=== PATIENT | male | born 1930 | race Caucasian/White ===

== ENCOUNTER 2017-01-04 08:05 | Inpatient (IN) ==
[2017-01-04] MEDS ORDERED: 0.9 % Sodium Chloride 1,000 ML IVC ONE (08:09)
[2017-01-04] MEDS ORDERED: Ipratropium/Albuterol Neb 3 ML IH ONE (08:11)
--- NOTE | 2017-01-04 08:14 | Emergency Department Note ---
Disposition Clinical Impression: Hyperkalemia, Renal failure (ARF), acute on chronic Respiratory failure Qualifiers: Chronicity: acute Respiratory failure complication: hypoxia and hypercapnia Qualified Code(s): J96.01 - Acute respiratory failure with hypoxia; J96.02 - Acute respiratory failure with hypercapnia Sepsis Qualifiers: Sepsis type: sepsis due to unspecified organism Qualified Code(s): A41.9 - Sepsis, unspecified organism Disposition: Admitted As Inpatient Condition: Serious General Adult HPI - General Chief complaint: ED Shortness of Breath/Dyspnea Stated complaint: SOB Time Seen by Provider: 01/04/17 08:08 Source: EMS Nursing Notes Reviewed: Yes Vital Signs Reviewed: Yes - History of Present Illness Pain Scale: 0 - Related Data Home Medications Medication Instructions Recorded Confirmed Aspirin [Lo-Dose Aspirin EC] 81 mg PO DAILY 01/04/17 01/04/17 Atenolol [Tenormin] 37.5 mg PO DAILY 01/04/17 01/04/17 Calcium Citrate 200 mg PO BID 01/04/17 01/04/17 Cholecalciferol (D-3) [Vitamin D] 2,000 unit PO DAILY 01/04/17 01/04/17 Docusate [Colace] 100 mg PO BID 01/04/17 01/04/17 Guaifenesin [Adult Tussin Chest 100 mg PO Q6H PRN 01/04/17 01/04/17 Congestion] Hydrochlorothiazide 12.5 mg PO DAILY 01/04/17 01/04/17 Ipratropium/Albuterol Neb [Duoneb] 3 ml IH Q4HR 01/04/17 01/04/17 Omeprazole [PriLOSEC] 40 mg PO BID 01/04/17 01/04/17 Oxycodone HCl/Acetaminophen 1 tab PO Q4H PRN 01/04/17 01/04/17 [Percocet 5-325 mg Tablet] Potassium Chloride [Klor-Con 10 meq PO DAILY 01/04/17 01/04/17 Sprinkle] Sennosides [Senna] 8.6 mg PO BID PRN 01/04/17 01/04/17 Tamsulosin [Flomax] 0.4 mg PO DAILY 01/04/17 01/04/17 Allergies Allergy/AdvReac Type Severity Reaction Status Date / Time Amoxicillin [From Augmentin] Allergy Anaphylaxis Verified 01/04/17 08:10 clavulanic acid Allergy Anaphylaxis Verified 01/04/17 08:10 [From Augmentin] Past Medical History - Past Medical History Medical history: Reports: cancer, COPD, GERD, hyperlipidemia, hypertension, other - Social History Smoking Status: Former smoker Alcohol use: Reports: unknown Drug use: Reports: unknown Course Vital Signs Temperature 100.3 F H 01/04/17 08:07 Pulse Rate 125 01/04/17 08:07 Respiratory Rate 28 01/04/17 08:07 Blood Pressure 88/57 01/04/17 08:07 O2 Sat by Pulse Oximetry 96 01/04/17 08:07 Temperature 98.5 F 01/04/17 11:49 Pulse Rate 93 01/04/17 11:49 Respiratory Rate 32 01/04/17 11:49 Blood Pressure 90/49 01/04/17 11:49 O2 Sat by Pulse Oximetry 90 L 01/04/17 11:49 Oxygen Delivery Oxygen Delivery Non Rebreather Mask Medical Decision Making - MDM Narrative Medical decision making narrative: I examined this patient and my medical decision-making was reviewed with the CLERK OF SUPERIOR COURT/PA/Advanced Practice Nurse/Resident Physician. I agree with the documented findings, disposition and treatment plan as described except to the extent set forth below. Patient was referred to the ED from the [facility]. I spoke with her physician over there. They thought he may have choked or aspirated this morning. He had rhonchorous breath sounds. His sats were low, blood pressure was in the 70s, he is [facility] Have not seen his actual records. Patient is having difficulty with breathing he is history of bronchogenic carcinoma. He did have 2 episodes of vomiting over there the paramedics noted was dark in color look coffee-ground emesis. History of peptic ulcer in the past this could be a GI bleed. Getting a second IV in him doing sepsis orders and reassess once his labs are back. He will most likely need an ICU admission. Chest X-Ray 01/04/17 08:08 IMPRESSION: 1. Study limited, as detailed above. 2. 6.0 cm masslike opacity within mid right lung, with differential considerations including a pulmonary mass, pneumonia, or loculated fluid in the fissure. 3. Curvilinear bibasilar airspace disease, representing either atelectasis, pneumonia, or aspiration. 4. Mild interstitial pulmonary edema. 5. Bilateral hilar opacity could reflect vascular shadows in the setting of pulmonary arterial hypertension, though bilateral hilar lymphadenopathy is also a diagnostic consideration. RECOMMENDATION: Given the aforementioned findings, suggest further characterization with a chest CT with contrast. D/ / Rinku Harvey MD / Rinku Harvey MD Interpreting Provider: Rinku Harvey MD 0900 hrs.: Spoke with his daughter. She understands that he is not likely to survive this episode. She said they were at [facility] 3 weeks ago for kidney failure. At that time the hospital one in the sign a DNR and he did not. They do not want to go against his wishes. However I am uncertain whether he can make any of this decisions today. Daughters, nor talked to her about his condition and determine the best course. He has antibiotics ordered. As he could be septic. We will make sure he is not a GI bleed also. 0920 hrs. his guaiac showed dark stool here but new policy in the hospital prevents us from developing the guaiac immediately in the ER to determine its paws are not badillo wait for lab. His troponin is elevated. His potassium is elevated I am talking to the lab to find out if the specimen was hemolyzed. Calcium is ordered. Waiting on daughter still to determine more management with him and how aggressive they like to be. 0930 hrs.: Spoke with labs, no hemolysis on his specimen. 0940 hrs.: I spoke with the family. They want him to be comfortable. There still not certain about intubation. They understand that he will probably not survive this. We spoke with palliative care there to speak with the family. Family is speaking with mortgage assistant now. We will go and request a bed for him and then speak with hospitalist palliative care and continue updating family. 1015 hrs.: Patient has decided he wants to be a DNR CC, family is in agreement with that. He will have a palliative consult with hospitalist admission. We did have a palliative care bed. Patient's critical care time x-rays separately billable procedures is 65 minutes. 1030 hrs.: Palliative care seen the patient in the department. Patient will be admitted to hospitalist service with palliative care consult in. Family is in agreement with plan and thankful for this plan. - Lab Data Result diagrams: 01/04/17 08:28 01/04/17 08:28 Lab Results 01/04/17 01/04/17 01/04/17 Range/Units 08:18 08:20 08:28 WBC 23.1 H (4.3-11.1) K/mcL RBC 3.51 L (4.19-5.50) M/mcL Hgb 10.2 L (12.9-16.9) g/dL Hct 34.1 L (37.5-50.1) % MCV 97.2 (83.0-100.0) fL MCH 29.1 (28.0-33.3) pg MCHC 29.9 L (31.6-35.5) g/dL RDW 14.6 H (11.5-14.5) % Plt Count 485 H (140-400) K/mcL MPV 9.4 (9.4-12.4) fL Seg Neutrophils % 76.0 % Band Neutrophils % 16.0 H (0-4) % Lymphocytes % 4.0 % Monocytes % 2.0 % Myelocytes % 2.0 H (0) % Neutrophils # 21.3 H (1.6-8.9) K/mcL Lymphocytes # 0.9 (0.6-4.6) K/mcL Monocytes # 0.5 (0.0-1.3) K/mcL Platelet Estimate Increased H (Normal) Immature Plt Fraction 2.2 (1.1-6.1) % Polychromasia 1+ A (Not Present) Poikilocytosis 1+ A (Not Present) Anisocytosis 1+ A (Not Present) PT (9.4-12.1) Seconds INR APTT (26.0-36.0) Seconds ABG pH 7.43 (7.32-7.45) pH Units ABG pCO2 54 H (35-45) mmHg ABG pO2 82 L (85-104) mmHg ABG HCO3 35.8 H (21-27) mEQ/L ABG Total CO2 37.5 H (20-26) mEq/L ABG O2 Saturation 96 (95-98) % ABG Base Excess 10.1 H (-2.0 to 3.0) mEq/L Blood Gas Modality NRB Inspired O2 100 % Sodium (136-145) mEq/L Potassium (3.5-4.5) mEq/L Chloride (98-109) mEq/L Carbon Dioxide (19-29) mEq/L BUN (8-26) mg/dL Creatinine (0.72-1.25) mg/dL Est GFR ( Amer) (> 60) Est GFR (Non-Af Amer) (> 60) BUN/Creatinine Ratio (6-26) Glucose (70-99) mg/dL Calculated Osmolality (280-300) Lactic Acid (0.5-2.2) mmol/L Calcium (8.6-10.8) mg/dL Phosphorus (2.3-4.7) mg/dL Magnesium (1.6-2.6) mg/dL Total Bilirubin (0.2-1.2) mg/dL AST (5-34) Units/L ALT (0-55) Units/L Alkaline Phosphatase (38-126) Units/L Troponin I (0-0.03) ng/mL B-Natriuretic Peptide (0-100) pg/mL Serum Total Protein (6.0-8.3) g/dL Albumin (3.5-5.0) g/dL Globulin (2.4-3.5) g/dL Albumin/Globulin Ratio (1.1-2.2) Lipase (8-78) Units/L Urine Color Dark Yellow (Yellow) Urine Clarity Cloudy A (Clear) Urine pH 5.5 (5.0-8.0) pH Units Ur Specific [place] > 1.030 H (1.010-1.025) Urine Protein 30 H (Neg-Trace) mg/dL Urine Glucose (UA) Normal (Normal) mg/dL Urine Ketones Trace H (Negative) mg/dL Urine Blood Large H (Negative) Urine Nitrite Positive A (Negative) Urine Bilirubin Negative (Negative) Urine Urobilinogen Normal (Normal) mg/dL Ur Leukocyte Esterase Moderate H (Negative) Urine Microscopic RBC 30-50 H (0-3) per hpf Urine Microscopic WBC TNTC H (0-3) per hpf Ur Squamous Epith Cells Many H (None-Few) per lpf Urine Bacteria Moderate H (None-Few) per hpf Hyaline Casts Few (None-Few) per lpf Ur Culture Indicated? YES A (NO) Stool Occult Blood (Negative) Blood Type Antibody Screen 01/04/17 01/04/17 01/04/17 Range/Units 08:28 08:28 08:28 WBC (4.3-11.1) K/mcL RBC (4.19-5.50) M/mcL Hgb (12.9-16.9) g/dL Hct (37.5-50.1) % MCV (83.0-100.0) fL MCH (28.0-33.3) pg MCHC (31.6-35.5) g/dL RDW (11.5-14.5) % Plt Count (140-400) K/mcL MPV (9.4-12.4) fL Seg Neutrophils % % Band Neutrophils % (0-4) % Lymphocytes % % Monocytes % % Myelocytes % (0) % Neutrophils # (1.6-8.9) K/mcL Lymphocytes # (0.6-4.6) K/mcL Monocytes # (0.0-1.3) K/mcL Platelet Estimate (Normal) Immature Plt Fraction (1.1-6.1) % Polychromasia (Not Present) Poikilocytosis (Not Present) Anisocytosis (Not Present) PT 14.3 H (9.4-12.1) Seconds INR 1.3 APTT 31.5 (26.0-36.0) Seconds ABG pH (7.32-7.45) pH Units ABG pCO2 (35-45) mmHg ABG pO2 (85-104) mmHg ABG HCO3 (21-27) mEQ/L ABG Total CO2 (20-26) mEq/L ABG O2 Saturation (95-98) % ABG Base Excess (-2.0 to 3.0) mEq/L Blood Gas Modality Inspired O2 % Sodium 147 H (136-145) mEq/L Potassium 6.9 H* (3.5-4.5) mEq/L Chloride 105 (98-109) mEq/L Carbon Dioxide 32 H (19-29) mEq/L BUN 77 H (8-26) mg/dL Creatinine 3.03 H (0.72-1.25) mg/dL Est GFR ( Amer) 24 L (> 60) Est GFR (Non-Af Amer) 20 L (> 60) BUN/Creatinine Ratio 25 (6-26) Glucose 121 H (70-99) mg/dL Calculated Osmolality 328 H (280-300) Lactic Acid (0.5-2.2) mmol/L Calcium 10.4 (8.6-10.8) mg/dL Phosphorus (2.3-4.7) mg/dL Magnesium (1.6-2.6) mg/dL Total Bilirubin 0.3 (0.2-1.2) mg/dL AST 19 (5-34) Units/L ALT 13 (0-55) Units/L Alkaline Phosphatase 86 (38-126) Units/L Troponin I 0.71 H* (0-0.03) ng/mL B-Natriuretic Peptide (0-100) pg/mL Serum Total Protein 7.5 (6.0-8.3) g/dL Albumin 2.4 L (3.5-5.0) g/dL Globulin 5.1 H (2.4-3.5) g/dL Albumin/Globulin Ratio 0.5 L (1.1-2.2) Lipase 11 (8-78) Units/L Urine Color (Yellow) Urine Clarity (Clear) Urine pH (5.0-8.0) pH Units Ur Specific [place] (1.010-1.025) Urine Protein (Neg-Trace) mg/dL Urine Glucose (UA) (Normal) mg/dL Urine Ketones (Negative) mg/dL Urine Blood (Negative) Urine Nitrite (Negative) Urine Bilirubin (Negative) Urine Urobilinogen (Normal) mg/dL Ur Leukocyte Esterase (Negative) Urine Microscopic RBC (0-3) per hpf Urine Microscopic WBC (0-3) per hpf Ur Squamous Epith Cells (None-Few) per lpf Urine Bacteria (None-Few) per hpf Hyaline Casts (None-Few) per lpf Ur Culture Indicated? (NO) Stool Occult Blood (Negative) Blood Type Antibody Screen 01/04/17 01/04/17 01/04/17 Range/Units 08:28 08:28 08:28 WBC (4.3-11.1) K/mcL RBC (4.19-5.50) M/mcL Hgb (12.9-16.9) g/dL Hct (37.5-50.1) % MCV (83.0-100.0) fL MCH (28.0-33.3) pg MCHC (31.6-35.5) g/dL RDW (11.5-14.5) % Plt Count (140-400) K/mcL MPV (9.4-12.4) fL Seg Neutrophils % % Band Neutrophils % (0-4) % Lymphocytes % % Monocytes % % Myelocytes % (0) % Neutrophils # (1.6-8.9) K/mcL Lymphocytes # (0.6-4.6) K/mcL Monocytes # (0.0-1.3) K/mcL Platelet Estimate (Normal) Immature Plt Fraction (1.1-6.1) % Polychromasia (Not Present) Poikilocytosis (Not Present) Anisocytosis (Not Present) PT (9.4-12.1) Seconds INR APTT (26.0-36.0) Seconds ABG pH (7.32-7.45) pH Units ABG pCO2 (35-45) mmHg ABG pO2 (85-104) mmHg ABG HCO3 (21-27) mEQ/L ABG Total CO2 (20-26) mEq/L ABG O2 Saturation (95-98) % ABG Base Excess (-2.0 to 3.0) mEq/L Blood Gas Modality Inspired O2 % Sodium (136-145) mEq/L Potassium (3.5-4.5) mEq/L Chloride (98-109) mEq/L Carbon Dioxide (19-29) mEq/L BUN (8-26) mg/dL Creatinine (0.72-1.25) mg/dL Est GFR ( Amer) (> 60) Est GFR (Non-Af Amer) (> 60) BUN/Creatinine Ratio (6-26) Glucose (70-99) mg/dL Calculated Osmolality (280-300) Lactic Acid 2.3 H (0.5-2.2) mmol/L Calcium (8.6-10.8) mg/dL Phosphorus 5.4 H (2.3-4.7) mg/dL Magnesium 2.4 (1.6-2.6) mg/dL Total Bilirubin (0.2-1.2) mg/dL AST (5-34) Units/L ALT (0-55) Units/L Alkaline Phosphatase (38-126) Units/L Troponin I (0-0.03) ng/mL B-Natriuretic Peptide 393 H (0-100) pg/mL Serum Total Protein (6.0-8.3) g/dL Albumin (3.5-5.0) g/dL Globulin (2.4-3.5) g/dL Albumin/Globulin Ratio (1.1-2.2) Lipase (8-78) Units/L Urine Color (Yellow) Urine Clarity (Clear) Urine pH (5.0-8.0) pH Units Ur Specific [place] (1.010-1.025) Urine Protein (Neg-Trace) mg/dL Urine Glucose (UA) (Normal) mg/dL Urine Ketones (Negative) mg/dL Urine Blood (Negative) Urine Nitrite (Negative) Urine Bilirubin (Negative) Urine Urobilinogen (Normal) mg/dL Ur Leukocyte Esterase (Negative) Urine Microscopic RBC (0-3) per hpf Urine Microscopic WBC (0-3) per hpf Ur Squamous Epith Cells (None-Few) per lpf Urine Bacteria (None-Few) per hpf Hyaline Casts (None-Few) per lpf Ur Culture Indicated? (NO) Stool Occult Blood (Negative) Blood Type Antibody Screen 01/04/17 01/04/17 01/04/17 Range/Units 08:33 09:20 10:29 WBC (4.3-11.1) K/mcL RBC (4.19-5.50) M/mcL Hgb (12.9-16.9) g/dL Hct (37.5-50.1) % MCV (83.0-100.0) fL MCH (28.0-33.3) pg MCHC (31.6-35.5) g/dL RDW (11.5-14.5) % Plt Count (140-400) K/mcL MPV (9.4-12.4) fL Seg Neutrophils % % Band Neutrophils % (0-4) % Lymphocytes % % Monocytes % % Myelocytes % (0) % Neutrophils # (1.6-8.9) K/mcL Lymphocytes # (0.6-4.6) K/mcL Monocytes # (0.0-1.3) K/mcL Platelet Estimate (Normal) Immature Plt Fraction (1.1-6.1) % Polychromasia (Not Present) Poikilocytosis (Not Present) Anisocytosis (Not Present) PT (9.4-12.1) Seconds INR APTT (26.0-36.0) Seconds ABG pH (7.32-7.45) pH Units ABG pCO2 (35-45) mmHg ABG pO2 (85-104) mmHg ABG HCO3 (21-27) mEQ/L ABG Total CO2 (20-26) mEq/L ABG O2 Saturation (95-98) % ABG Base Excess (-2.0 to 3.0) mEq/L Blood Gas Modality Inspired O2 % Sodium (136-145) mEq/L Potassium (3.5-4.5) mEq/L Chloride (98-109) mEq/L Carbon Dioxide (19-29) mEq/L BUN (8-26) mg/dL Creatinine (0.72-1.25) mg/dL Est GFR ( Amer) (> 60) Est GFR (Non-Af Amer) (> 60) BUN/Creatinine Ratio (6-26) Glucose (70-99) mg/dL Calculated Osmolality (280-300) Lactic Acid 1.7 (0.5-2.2) mmol/L Calcium (8.6-10.8) mg/dL Phosphorus (2.3-4.7) mg/dL Magnesium (1.6-2.6) mg/dL Total Bilirubin (0.2-1.2) mg/dL AST (5-34) Units/L ALT (0-55) Units/L Alkaline Phosphatase (38-126) Units/L Troponin I (0-0.03) ng/mL B-Natriuretic Peptide (0-100) pg/mL Serum Total Protein (6.0-8.3) g/dL Albumin (3.5-5.0) g/dL Globulin (2.4-3.5) g/dL Albumin/Globulin Ratio (1.1-2.2) Lipase (8-78) Units/L Urine Color (Yellow) Urine Clarity (Clear) Urine pH (5.0-8.0) pH Units Ur Specific [place] (1.010-1.025) Urine Protein (Neg-Trace) mg/dL Urine Glucose (UA) (Normal) mg/dL Urine Ketones (Negative) mg/dL Urine Blood (Negative) Urine Nitrite (Negative) Urine Bilirubin (Negative) Urine Urobilinogen (Normal) mg/dL Ur Leukocyte Esterase (Negative) Urine Microscopic RBC (0-3) per hpf Urine Microscopic WBC (0-3) per hpf Ur Squamous Epith Cells (None-Few) per lpf Urine Bacteria (None-Few) per hpf Hyaline Casts (None-Few) per lpf Ur Culture Indicated? (NO) Stool Occult Blood Negative (Negative) Blood Type O POSITIVE Antibody Screen NEGATIVE
--- NOTE | 2017-01-04 08:15 | Emergency Department Note ---
Disposition Clinical Impression: Hyperkalemia, Renal failure (ARF), acute on chronic Respiratory failure Qualifiers: Chronicity: acute on chronic Respiratory failure complication: hypoxia and hypercapnia Qualified Code(s): J96.21 - Acute and chronic respiratory failure with hypoxia Sepsis Qualifiers: Sepsis type: sepsis due to unspecified organism Qualified Code(s): A41.9 - Sepsis, unspecified organism Disposition: Admitted As Inpatient Condition: Serious General Adult HPI - General Chief complaint: ED Shortness of Breath/Dyspnea Stated complaint: SOB Time Seen by Provider: 01/04/17 08:08 Source: patient, EMS Mode of arrival: EMS Limitations: no limitations Nursing Notes Reviewed: Yes Vital Signs Reviewed: Yes - History of Present Illness HPI Narrative: 86-year-old male [place] the [place] from the [place] due to shortness of breath. Pt Subjective Complaint: Shortness of breath Onset (ago): Just DERMATOPATHOLOGIST Location: chest Radiation: non-radiation Pain Scale: 0 Consistency: constant Improves with: nothing Worsens with: nothing Associated symptoms: Reports: shortness of breath. Denies: chest pain, cough, fever/chills, nausea/vomiting Treatments Prior to Arrival: other (Oxygen) - Related Data Home Medications Medication Instructions Recorded Confirmed Aspirin [Lo-Dose Aspirin EC] 81 mg PO DAILY 01/04/17 01/04/17 Atenolol [Tenormin] 37.5 mg PO DAILY 01/04/17 01/04/17 Calcium Citrate 200 mg PO BID 01/04/17 01/04/17 Cholecalciferol (D-3) [Vitamin D] 2,000 unit PO DAILY 01/04/17 01/04/17 Docusate [Colace] 100 mg PO BID 01/04/17 01/04/17 Guaifenesin [Adult Tussin Chest 100 mg PO Q6H PRN 01/04/17 01/04/17 Congestion] Hydrochlorothiazide 12.5 mg PO DAILY 01/04/17 01/04/17 Ipratropium/Albuterol Neb [Duoneb] 3 ml IH Q4HR 01/04/17 01/04/17 Omeprazole [PriLOSEC] 40 mg PO BID 01/04/17 01/04/17 Oxycodone HCl/Acetaminophen 1 tab PO Q4H PRN 01/04/17 01/04/17 [Percocet 5-325 mg Tablet] Potassium Chloride [Klor-Con 10 meq PO DAILY 01/04/17 01/04/17 Sprinkle] Sennosides [Senna] 8.6 mg PO BID PRN 01/04/17 01/04/17 Tamsulosin [Flomax] 0.4 mg PO DAILY 01/04/17 01/04/17 Allergies Allergy/AdvReac Type Severity Reaction Status Date / Time Amoxicillin [From Augmentin] Allergy Anaphylaxis Verified 01/04/17 08:10 clavulanic acid Allergy Anaphylaxis Verified 01/04/17 08:10 [From Augmentin] All systems ED: reviewed and negative except as stated. Constitutional: Denies: fever Cardiovascular: Denies: chest pain Respiratory: Reports: dyspnea, other (Coffee-ground emesis). Denies: wheezes Gastrointestinal: Reports: vomiting, hematemesis (Coffee-ground). Denies: abdominal pain, nausea Hematological/Lymphatic: Denies: easy bleeding Past Medical History - Past Medical History Attestation: Yes The following information was validated with the patient. Source: patient, old records reviewed Medical history: Reports: cancer, COPD, GERD, hyperlipidemia, hypertension, other Surgical history: Reports: non-contributory - Social History Smoking Status: Former smoker Alcohol use: Reports: unknown Drug use: Reports: unknown Physical Exam - General Limitations: no limitations General appearance: alert, in distress - Head Head exam: atraumatic, normocephalic, normal inspection - Eye Eye exam: Present: normal appearance - ENT ENT exam: normal exam - Neck Neck exam: Present: normal inspection - Chest Chest inspection: Present: normal inspection, symmetric chest wall rise - Respiratory Respiratory exam: Present: respiratory distress, accessory muscle use, other ( Patient has diffuse coarse breath sounds) - Cardiovascular Cardiovascular exam: Present: normal rhythm, tachycardia, normal heart sounds - Abdominal Exam Abdominal exam: Present: soft, Non-Tender, distention - Extremities Exam Extremities exam: Present: normal inspection, full ROM - Expanded Lower Extremity Exam Hip/Pelvis exam: Present: normal inspection, full ROM Upper leg exam: Present: normal inspection, full ROM Knee exam: Present: normal inspection, full ROM Lower leg exam: Present: normal inspection, full ROM Ankle exam: Present: normal inspection, full ROM Foot/toe exam: Present: normal inspection, full ROM - Neurological Exam Neurological exam: Present: alert - Psychiatric Psychiatric exam: Present: normal affect, normal mood - Skin Skin exam: Present: warm, dry, intact, normal color Course Course Narrative: 86-year-old male history of bronchogenic carcinoma, hypertension, hyperlipidemia , GERD, peptic ulcer disease who presents to the ER via EMS from the [facility] with a chief complaint of shortness of breath. Report from the [place] states that they thought the patient might have aspirated prior to arrival. It was noted on his sheets that he had the appearance of coffee-ground emesis. Patient was placed on a nonrebreather with improvement of his oxygen saturation. He denies chest pain. Reports that he does feel more short of breath and usual. No other complaints. Plan for patient his EKG, chest x-ray as well as basic labs and sepsis screening. We will give him some breathing treatments now. Low threshold to place on in IPPV which intubate. Reported full code. He is hypotensive on presentation. A second IV has been established. We will begin IV fluid resuscitation. - Reevaluation(s) Reevaluation #1: Patient remains hypotensive in the 70s over 40s. Placing fluids on pressure bag. Continue to monitor closely. Reevaluation #2: Slight improvement in blood pressure with 1 L in. Blood pressure was 90/60. We are currently holding off on positive pressure ventilation due to his hypotension. Family is on the way and will discuss with them. Vital Signs Temperature 100.3 F H 01/04/17 08:07 Pulse Rate 125 01/04/17 08:07 Respiratory Rate 28 01/04/17 08:07 Blood Pressure 88/57 01/04/17 08:07 O2 Sat by Pulse Oximetry 96 01/04/17 08:07 Temperature 97.8 F 01/05/17 03:44 Pulse Rate 83 01/05/17 03:44 Respiratory Rate 30 01/05/17 04:17 Blood Pressure 84/43 01/05/17 03:44 O2 Sat by Pulse Oximetry 97 01/05/17 04:17 Oxygen Delivery Oxygen Delivery Non Rebreather Mask Medical Decision Making - [facility] Narrative Medical decision making narrative: 86-year-old male presents to the ER due to respiratory distress from the [place]. He has a history of lung cancer. Patient here was tachycardic and hypotensive. Patient was given IV fluid resuscitation with improvement in his blood pressure. Family was present and discussed end-of-life care. Patient's CODE STATUS was changed to DNR CC and he was admitted to the hospitalist service with a palliative care consult. - Lab Data Lab results reviewed: Yes I reviewed the patient's lab results. Result diagrams: 01/04/17 08:28 01/05/17 05:30 Lab Results 01/04/17 01/04/17 01/04/17 Range/Units 08:18 08:20 08:28 WBC 23.1 H (4.3-11.1) K/mcL RBC 3.51 L (4.19-5.50) M/mcL Hgb 10.2 L (12.9-16.9) g/dL Hct 34.1 L (37.5-50.1) % MCV 97.2 (83.0-100.0) fL MCH 29.1 (28.0-33.3) pg MCHC 29.9 L (31.6-35.5) g/dL RDW 14.6 H (11.5-14.5) % Plt Count 485 H (140-400) K/mcL MPV 9.4 (9.4-12.4) fL Seg Neutrophils % 76.0 % Band Neutrophils % 16.0 H (0-4) % Lymphocytes % 4.0 % Monocytes % 2.0 % Myelocytes % 2.0 H (0) % Neutrophils # 21.3 H (1.6-8.9) K/mcL Lymphocytes # 0.9 (0.6-4.6) K/mcL Monocytes # 0.5 (0.0-1.3) K/mcL Platelet Estimate Increased H (Normal) Immature Plt Fraction 2.2 (1.1-6.1) % Polychromasia 1+ A (Not Present) Poikilocytosis 1+ A (Not Present) Anisocytosis 1+ A (Not Present) PT (9.4-12.1) Seconds INR APTT (26.0-36.0) Seconds ABG pH 7.43 (7.32-7.45) pH Units ABG pCO2 54 H (35-45) mmHg ABG pO2 82 L (85-104) mmHg ABG HCO3 35.8 H (21-27) mEQ/L ABG Total CO2 37.5 H (20-26) mEq/L ABG O2 Saturation 96 (95-98) % ABG Base Excess 10.1 H (-2.0 to 3.0) mEq/L Blood Gas Modality NRB Inspired O2 100 % Sodium (136-145) mEq/L Potassium (3.5-4.5) mEq/L Chloride (98-109) mEq/L Carbon Dioxide (19-29) mEq/L BUN (8-26) mg/dL Creatinine (0.72-1.25) mg/dL Est GFR ( Amer) (> 60) Est GFR (Non-Af Amer) (> 60) BUN/Creatinine Ratio (6-26) Glucose (70-99) mg/dL Calculated Osmolality (280-300) Lactic Acid (0.5-2.2) mmol/L Calcium (8.6-10.8) mg/dL Phosphorus (2.3-4.7) mg/dL Magnesium (1.6-2.6) mg/dL Total Bilirubin (0.2-1.2) mg/dL AST (5-34) Units/L ALT (0-55) Units/L Alkaline Phosphatase (38-126) Units/L Troponin I (0-0.03) ng/mL B-Natriuretic Peptide (0-100) pg/mL Serum Total Protein (6.0-8.3) g/dL Albumin (3.5-5.0) g/dL Globulin (2.4-3.5) g/dL Albumin/Globulin Ratio (1.1-2.2) Lipase (8-78) Units/L Urine Color Dark Yellow (Yellow) Urine Clarity Cloudy A (Clear) Urine pH 5.5 (5.0-8.0) pH Units Ur Specific [place] > 1.030 H (1.010-1.025) Urine Protein 30 H (Neg-Trace) mg/dL Urine Glucose (UA) Normal (Normal) mg/dL Urine Ketones Trace H (Negative) mg/dL Urine Blood Large H (Negative) Urine Nitrite Positive A (Negative) Urine Bilirubin Negative (Negative) Urine Urobilinogen Normal (Normal) mg/dL Ur Leukocyte Esterase Moderate H (Negative) Urine Microscopic RBC 30-50 H (0-3) per hpf Urine Microscopic WBC TNTC H (0-3) per hpf Ur Squamous Epith Cells Many H (None-Few) per lpf Urine Bacteria Moderate H (None-Few) per hpf Hyaline Casts Few (None-Few) per lpf Ur Culture Indicated? YES A (NO) Stool Occult Blood (Negative) Blood Type Antibody Screen 01/04/17 01/04/17 01/04/17 Range/Units 08:28 08:28 08:28 WBC (4.3-11.1) K/mcL RBC (4.19-5.50) M/mcL Hgb (12.9-16.9) g/dL Hct (37.5-50.1) % MCV (83.0-100.0) fL MCH (28.0-33.3) pg MCHC (31.6-35.5) g/dL RDW (11.5-14.5) % Plt Count (140-400) K/mcL MPV (9.4-12.4) fL Seg Neutrophils % % Band Neutrophils % (0-4) % Lymphocytes % % Monocytes % % Myelocytes % (0) % Neutrophils # (1.6-8.9) K/mcL Lymphocytes # (0.6-4.6) K/mcL Monocytes # (0.0-1.3) K/mcL Platelet Estimate (Normal) Immature Plt Fraction (1.1-6.1) % Polychromasia (Not Present) Poikilocytosis (Not Present) Anisocytosis (Not Present) PT 14.3 H (9.4-12.1) Seconds INR 1.3 APTT 31.5 (26.0-36.0) Seconds ABG pH (7.32-7.45) pH Units ABG pCO2 (35-45) mmHg ABG pO2 (85-104) mmHg ABG HCO3 (21-27) mEQ/L ABG Total CO2 (20-26) mEq/L ABG O2 Saturation (95-98) % ABG Base Excess (-2.0 to 3.0) mEq/L Blood Gas Modality Inspired O2 % Sodium 147 H (136-145) mEq/L Potassium 6.9 H* (3.5-4.5) mEq/L Chloride 105 (98-109) mEq/L Carbon Dioxide 32 H (19-29) mEq/L BUN 77 H (8-26) mg/dL Creatinine 3.03 H (0.72-1.25) mg/dL Est GFR ( Amer) 24 L (> 60) Est GFR (Non-Af Amer) 20 L (> 60) BUN/Creatinine Ratio 25 (6-26) Glucose 121 H (70-99) mg/dL Calculated Osmolality 328 H (280-300) Lactic Acid (0.5-2.2) mmol/L Calcium 10.4 (8.6-10.8) mg/dL Phosphorus (2.3-4.7) mg/dL Magnesium (1.6-2.6) mg/dL Total Bilirubin 0.3 (0.2-1.2) mg/dL AST 19 (5-34) Units/L ALT 13 (0-55) Units/L Alkaline Phosphatase 86 (38-126) Units/L Troponin I 0.71 H* (0-0.03) ng/mL B-Natriuretic Peptide (0-100) pg/mL Serum Total Protein 7.5 (6.0-8.3) g/dL Albumin 2.4 L (3.5-5.0) g/dL Globulin 5.1 H (2.4-3.5) g/dL Albumin/Globulin Ratio 0.5 L (1.1-2.2) Lipase 11 (8-78) Units/L Urine Color (Yellow) Urine Clarity (Clear) Urine pH (5.0-8.0) pH Units Ur Specific [place] (1.010-1.025) Urine Protein (Neg-Trace) mg/dL Urine Glucose (UA) (Normal) mg/dL Urine Ketones (Negative) mg/dL Urine Blood (Negative) Urine Nitrite (Negative) Urine Bilirubin (Negative) Urine Urobilinogen (Normal) mg/dL Ur Leukocyte Esterase (Negative) Urine Microscopic RBC (0-3) per hpf Urine Microscopic WBC (0-3) per hpf Ur Squamous Epith Cells (None-Few) per lpf Urine Bacteria (None-Few) per hpf Hyaline Casts (None-Few) per lpf Ur Culture Indicated? (NO) Stool Occult Blood (Negative) Blood Type Antibody Screen 01/04/17 01/04/17 01/04/17 Range/Units 08:28 08:28 08:28 WBC (4.3-11.1) K/mcL RBC (4.19-5.50) M/mcL Hgb (12.9-16.9) g/dL Hct (37.5-50.1) % MCV (83.0-100.0) fL MCH (28.0-33.3) pg MCHC (31.6-35.5) g/dL RDW (11.5-14.5) % Plt Count (140-400) K/mcL MPV (9.4-12.4) fL Seg Neutrophils % % Band Neutrophils % (0-4) % Lymphocytes % % Monocytes % % Myelocytes % (0) % Neutrophils # (1.6-8.9) K/mcL Lymphocytes # (0.6-4.6) K/mcL Monocytes # (0.0-1.3) K/mcL Platelet Estimate (Normal) Immature Plt Fraction (1.1-6.1) % Polychromasia (Not Present) Poikilocytosis (Not Present) Anisocytosis (Not Present) PT (9.4-12.1) Seconds INR APTT (26.0-36.0) Seconds ABG pH (7.32-7.45) pH Units ABG pCO2 (35-45) mmHg ABG pO2 (85-104) mmHg ABG HCO3 (21-27) mEQ/L ABG Total CO2 (20-26) mEq/L ABG O2 Saturation (95-98) % ABG Base Excess (-2.0 to 3.0) mEq/L Blood Gas Modality Inspired O2 % Sodium (136-145) mEq/L Potassium (3.5-4.5) mEq/L Chloride (98-109) mEq/L Carbon Dioxide (19-29) mEq/L BUN (8-26) mg/dL Creatinine (0.72-1.25) mg/dL Est GFR ( Amer) (> 60) Est GFR (Non-Af Amer) (> 60) BUN/Creatinine Ratio (6-26) Glucose (70-99) mg/dL Calculated Osmolality (280-300) Lactic Acid 2.3 H (0.5-2.2) mmol/L Calcium (8.6-10.8) mg/dL Phosphorus 5.4 H (2.3-4.7) mg/dL Magnesium 2.4 (1.6-2.6) mg/dL Total Bilirubin (0.2-1.2) mg/dL AST (5-34) Units/L ALT (0-55) Units/L Alkaline Phosphatase (38-126) Units/L Troponin I (0-0.03) ng/mL B-Natriuretic Peptide 393 H (0-100) pg/mL Serum Total Protein (6.0-8.3) g/dL Albumin (3.5-5.0) g/dL Globulin (2.4-3.5) g/dL Albumin/Globulin Ratio (1.1-2.2) Lipase (8-78) Units/L Urine Color (Yellow) Urine Clarity (Clear) Urine pH (5.0-8.0) pH Units Ur Specific [place] (1.010-1.025) Urine Protein (Neg-Trace) mg/dL Urine Glucose (UA) (Normal) mg/dL Urine Ketones (Negative) mg/dL Urine Blood (Negative) Urine Nitrite (Negative) Urine Bilirubin (Negative) Urine Urobilinogen (Normal) mg/dL Ur Leukocyte Esterase (Negative) Urine Microscopic RBC (0-3) per hpf Urine Microscopic WBC (0-3) per hpf Ur Squamous Epith Cells (None-Few) per lpf Urine Bacteria (None-Few) per hpf Hyaline Casts (None-Few) per lpf Ur Culture Indicated? (NO) Stool Occult Blood (Negative) Blood Type Antibody Screen 01/04/17 01/04/17 01/04/17 Range/Units 08:33 09:20 10:29 WBC (4.3-11.1) K/mcL RBC (4.19-5.50) M/mcL Hgb (12.9-16.9) g/dL Hct (37.5-50.1) % MCV (83.0-100.0) fL MCH (28.0-33.3) pg MCHC (31.6-35.5) g/dL RDW (11.5-14.5) % Plt Count (140-400) K/mcL MPV (9.4-12.4) fL Seg Neutrophils % % Band Neutrophils % (0-4) % Lymphocytes % % Monocytes % % Myelocytes % (0) % Neutrophils # (1.6-8.9) K/mcL Lymphocytes # (0.6-4.6) K/mcL Monocytes # (0.0-1.3) K/mcL Platelet Estimate (Normal) Immature Plt Fraction (1.1-6.1) % Polychromasia (Not Present) Poikilocytosis (Not Present) Anisocytosis (Not Present) PT (9.4-12.1) Seconds INR APTT (26.0-36.0) Seconds ABG pH (7.32-7.45) pH Units ABG pCO2 (35-45) mmHg ABG pO2 (85-104) mmHg ABG HCO3 (21-27) mEQ/L ABG Total CO2 (20-26) mEq/L ABG O2 Saturation (95-98) % ABG Base Excess (-2.0 to 3.0) mEq/L Blood Gas Modality Inspired O2 % Sodium (136-145) mEq/L Potassium (3.5-4.5) mEq/L Chloride (98-109) mEq/L Carbon Dioxide (19-29) mEq/L BUN (8-26) mg/dL Creatinine (0.72-1.25) mg/dL Est GFR ( Amer) (> 60) Est GFR (Non-Af Amer) (> 60) BUN/Creatinine Ratio (6-26) Glucose (70-99) mg/dL Calculated Osmolality (280-300) Lactic Acid 1.7 (0.5-2.2) mmol/L Calcium (8.6-10.8) mg/dL Phosphorus (2.3-4.7) mg/dL Magnesium (1.6-2.6) mg/dL Total Bilirubin (0.2-1.2) mg/dL AST (5-34) Units/L ALT (0-55) Units/L Alkaline Phosphatase (38-126) Units/L Troponin I (0-0.03) ng/mL B-Natriuretic Peptide (0-100) pg/mL Serum Total Protein (6.0-8.3) g/dL Albumin (3.5-5.0) g/dL Globulin (2.4-3.5) g/dL Albumin/Globulin Ratio (1.1-2.2) Lipase (8-78) Units/L Urine Color (Yellow) Urine Clarity (Clear) Urine pH (5.0-8.0) pH Units Ur Specific [place] (1.010-1.025) Urine Protein (Neg-Trace) mg/dL Urine Glucose (UA) (Normal) mg/dL Urine Ketones (Negative) mg/dL Urine Blood (Negative) Urine Nitrite (Negative) Urine Bilirubin (Negative) Urine Urobilinogen (Normal) mg/dL Ur Leukocyte Esterase (Negative) Urine Microscopic RBC (0-3) per hpf Urine Microscopic WBC (0-3) per hpf Ur Squamous Epith Cells (None-Few) per lpf Urine Bacteria (None-Few) per hpf Hyaline Casts (None-Few) per lpf Ur Culture Indicated? (NO) Stool Occult Blood Negative (Negative) Blood Type O POSITIVE Antibody Screen NEGATIVE - Radiology Data Radiology results reviewed: Yes I reviewed the patient's radiology results. Chest X-Ray 01/04/17 08:08 IMPRESSION: 1. Study limited, as detailed above. 2. 6.0 cm masslike opacity within mid right lung, with differential considerations including a pulmonary mass, pneumonia, or loculated fluid in the fissure. 3. Curvilinear bibasilar airspace disease, representing either atelectasis, pneumonia, or aspiration. 4. Mild interstitial pulmonary edema. 5. Bilateral hilar opacity could reflect vascular shadows in the setting of pulmonary arterial hypertension, though bilateral hilar lymphadenopathy is also a diagnostic consideration. RECOMMENDATION: Given the aforementioned findings, suggest further characterization with a chest CT with contrast. D/ / Rinku Harvey MD / Rinku Harvey MD Interpreting Provider: Rinku Harvey MD - EKG Data EKG #1 EKG attestation: Yes I reviewed and interpreted this EKG. EKG results narrative: EKG shows sinus tachycardia with rate of 125. Left axis deviation. RI interval 146 QRS duration 85 QTc 354. There is slight depression in lead V6. No ST elevations. No previous EKG for comparison.
[2017-01-04] MEDS ORDERED: Vancomycin 750 MG in D5% in Water 250 ML IVPB ONE (08:34)
[2017-01-04] MEDS ORDERED: Levofloxacin 750 MG/150 ML 750 MG/150 ML BAG IVPB ONE (08:34)
[2017-01-04] MEDS ORDERED: Aztreonam 2,000 MG in D5% in Water (Mini-Bag+) 100 ML IVPB ONE (08:34)
[2017-01-04 08:35] LABS: ABG Base Excess 10.1 mEq/L (-2.0 to 3.0); ABG HCO3 35.8 mEQ/L (21-27); ABG Oxygen Saturation 96 % (95-98); ABG PCO2 54 mmHg (35-45); ABG PH 7.43 pH Units (7.32-7.45); ABG PO2 82 mmHg (85-104); ABG TCO2 37.5 mEq/L (20-26); Blood Gas FiO2 100 %
[2017-01-04 08:37] LABS: Bilirubin,Urine Negative (Negative); Blood,Urine Large (Negative); Clarity,Urine Cloudy (Clear); Color,Urine Dark Yellow (Yellow); Glucose,Urine (UA) Normal (Normal); Ketones,Urine Trace mg/dL (Negative); Leukocyte Esterase,Urine Moderate (Negative); Nitrite,Urine Positive (Negative); PH,Urine 5.5 pH Units (5.0-8.0); Protein,Urine 30 mg/dL (Neg-Trace); Specific Gravity,Urine > 1.030 (1.010-1.025); Urobilinogen,Urine Normal (Normal)
[2017-01-04] MEDS ORDERED: 0.9 % Sodium Chloride 500 ML IVC ONE (08:37)
[2017-01-04 08:38] LABS: Bacteria,Urine Moderate per hpf (None-Few); Hyaline Casts,Urine Few per lpf (None-Few); RBC,Urine 30-50 per hpf (0-3); Squamous Epithelial Cell,Urine Many per lpf (None-Few); WBC,Urine TNTC per hpf (0-3)
[2017-01-04 08:49] LABS: Hematocrit 34.1 % (37.5-50.1); Hemoglobin 10.2 g/dL (12.9-16.9); Immature Platelets 2.2 % (1.1-6.1); Mean Corpuscular HGB Conc 29.9 g/dL (31.6-35.5); Mean Corpuscular Hemoglobin 29.1 pg (28.0-33.3); Mean Corpuscular Volume 97.2 fL (83.0-100.0); Mean Platelet Volume 9.4 fL (9.4-12.4); Platelet Count 485 K/mcL (140-400); Red Blood Count 3.51 M/mcL (4.19-5.50); Red Cell Distribution Width 14.6 % (11.5-14.5)
[2017-01-04 08:56] LABS: INR 1.3; Prothrombin Time 14.3 Seconds (9.4-12.1)
[2017-01-04 08:58] LABS: Activated Partial Thrombo Time 31.5 Seconds (26.0-36.0)
[2017-01-04 09:01] LABS: Magnesium 2.4 mg/dL (1.6-2.6); Phosphorous 5.4 mg/dL (2.3-4.7)
[2017-01-04 09:04] LABS: Albumin 2.4 g/dL (3.5-5.0); Albumin/Globulin Ratio 0.5 (1.1-2.2); Bilirubin,Total 0.3 mg/dL (0.2-1.2); Calcium 10.4 mg/dL (8.6-10.8); Globulin 5.1 g/dL (2.4-3.5); Total Protein 7.5 g/dL (6.0-8.3)
[2017-01-04 09:13] LABS: Potassium 6.9 mEq/L (3.5-4.5)
[2017-01-04] MEDS ORDERED: Calcium Gluconate 1,000 MG in D5% in Water 100 ML IVPB ONE (09:19)
[2017-01-04 09:20] LABS: Lymphocytes # 0.9 K/mcL (0.6-4.6); Monocytes # 0.5 K/mcL (0.0-1.3); Neutrophils # 21.3 K/mcL (1.6-8.9)
[2017-01-04 09:21] LABS: Platelet Estimate Increased (Normal)
[2017-01-04 09:22] LABS: Anisocytosis 1+ (Not Present); Poikilocytosis 1+ (Not Present); Polychromasia 1+ (Not Present)
[2017-01-04] MEDS ORDERED: *HR* Dextrose 50 % in Water (Syg) 50 ML SYRINGE IVP ONE (09:26)
[2017-01-04] MEDS ORDERED: Insulin Human Regular 10 UNIT in 0.9 % Sodium Chloride 10 ML IV ONE (09:26)
[2017-01-04] MEDS ORDERED: *HR* Morphine 2 MG/ML SYRINGE IVP PRN ×2 (12:19→13:41)
[2017-01-04] MEDS ORDERED: Naloxone 0.4 MG/ML INJ IVP PRN (12:19)
[2017-01-04] MEDS ORDERED: *HR* OxyCODONE/APAP 5/325 TABLET PO PRN (12:22)
[2017-01-04] MEDS ORDERED: Atropine Sulfate 300 DROP/15 ML BOTTLE SL PRN (12:45)
[2017-01-04] MEDS ORDERED: Levofloxacin 500 MG/100 ML 500 MG/100 ML BAG IVPB SCH (13:00)
[2017-01-04] MEDS: 0.9 % Sodium Chloride 1,000 ML IVC SCH ×2 (13:19→22:40)
[2017-01-04] MEDS ORDERED: Ondansetron 4 MG/2 ML VIAL IVP PRN (13:39)
--- NOTE | 2017-01-04 13:42 | Internal Med History&Physical ---
Date of Encounter: 01/05/17 Time of Encounter: 13:38 Assessment and Plan (1) Sepsis Current visit: Yes Status: Acute Sepsis: -Likely source pneumonia. Plan: -We will continue meropenem/levofloxacin for now. -We will not start patient on vancomycin as his renal function is impaired. -We will monitor patient very closely. -Within of 48 hours if patient condition does not improve then we will let him go to hospice. -Family is aware of the situation and they agreed with the plan. -All these above discussed with the palliative care team and they agreed Qualifiers: Sepsis type: sepsis due to unspecified organism Qualified Code(s): A41.9 - Sepsis, unspecified organism (2) Renal failure (ARF), acute on chronic Current visit: Yes Status: Acute Acute kidney injury: -This is likely secondary to dehydration. -We will start patient on IV fluids and monitor his labs very closely. (3) Respiratory failure Current visit: Yes Status: Acute Advanced bronchogenic carcinoma. This may be the cause for respiratory failure. Qualifiers: Chronicity: acute on chronic Respiratory failure complication: hypoxia and hypercapnia Qualified Code(s): J96.21 - Acute and chronic respiratory failure with hypoxia; J96.22 - Acute and chronic respiratory failure with hypercapnia (4) Bronchogenic cancer Current visit: Yes Status: Acute Known to have a bronchogenic carcinoma. Qualifiers: Laterality: right Qualified Code(s): C34.91 - Malignant neoplasm of unspecified part of right bronchus or lung Internal Medicine - H&P: HPI Chief complaint: JAKUB Admitted From: Emergency Dept Plans for Post Hospital Care: Transfer [facility] History of present illness: Mr. Greer is a 86 year old male who was transferred from the [place]. Patient has a background history of bronchogenic carcinoma, hypertension, hyperlipidemia, GERD , peptic ulcer disease. Patient was brought to the emergency room from [place]. Patient was a resident of [facility]. The reason for transfer to this hospital at least for worsening shortness of breath. The likely reason for worsening shortness of breath is possible aspiration pneumonia. Family also found coffee-ground emesis on the patient's sheet. In the emergency room patient was placed on nonrebreather mask which kept his saturations were around 90%. Patient was obtunded and it was very difficult to get any further information from the patient. I understand that patient's family wanted comfort care. Emergency room physician spoke with the palliative care team. There was a good discussion between emergency room physician, palliative care physician, box car checker and family. Family would like patient to have few days of antibiotics only. they wish no further aggressive treatment. We will start patient on antibiotics for few days. If the patient's condition does not improve then family is willing for hospice. All family members are on the same page Past Med Surg Social Fam HX - Past Medical History Medical history: cancer, COPD, GERD, hyperlipidemia, hypertension, other - Past Surgical History Surgical History: non-contributory - Social History Smoking Status: Former smoker Alcohol use: unknown Drug use: unknown Internal Medicine - H&P: Meds Aspirin [Lo-Dose Aspirin EC] 81 mg PO DAILY 01/04/17 [History] Atenolol [Tenormin] 37.5 mg PO DAILY 01/04/17 [History] Calcium Citrate 200 mg PO BID 01/04/17 [History] Cholecalciferol (D-3) [Vitamin D] 2,000 unit PO DAILY 01/04/17 [History] Docusate [Colace] 100 mg PO BID 01/04/17 [History] Guaifenesin [Adult Tussin Chest Congestion] 100 mg PO Q6H PRN 01/04/17 [History] Hydrochlorothiazide 12.5 mg PO DAILY 01/04/17 [History] Ipratropium/Albuterol Neb [Duoneb] 3 ml IH Q4HR 01/04/17 [History] Omeprazole [PriLOSEC] 40 mg PO BID 01/04/17 [History] Oxycodone HCl/Acetaminophen [Percocet 5-325 mg Tablet] 1 tab PO Q4H PRN [History] Potassium Chloride [Klor-Con Sprinkle] 10 meq PO DAILY 01/04/17 [History] Sennosides [Senna] 8.6 mg PO BID PRN 01/04/17 [History] Tamsulosin [Flomax] 0.4 mg PO DAILY 01/04/17 [History] Allergies Amoxicillin [From Augmentin] Allergy (Verified 01/04/17 08:10) Anaphylaxis clavulanic acid [From Augmentin] Allergy (Verified 01/04/17 08:10) Anaphylaxis ROS unobtainable: due to mental status All Systems PM: A 10-system review of systems was performed and is negative for pertinent findings except as documented above in the HPI. - Constitutional Vitals: Temp Pulse Resp BP Pulse Ox 98.5 F 93 32 90/49 90 L 01/04/17 11:49 01/04/17 11:49 01/04/17 11:49 01/04/17 11:49 01/04/17 11:49 General appearance: Present: cachectic, A&O X 1, disheveled - Head Head exam: Present: atraumatic, normocephalic - Eye Eye exam: Present: PERRL, conjuntiva pink, sclera anicteric Pupils: Present: PERRL - Neck Neck exam general surgery: Present: supple, trachea midline. Absent: lymphadenopathy - Respiratory Respiratory exam: Present: CTAB. Absent: accessory muscle use, rales, rhonchi, wheezes - Cardiovascular Cardiovascular exam: Present: RRR, +S1, +S2. Absent: diastolic murmur, gallop, rubs, systolic murmur - GI/Abdominal GI/Abdominal exam: Present: normal bowel sounds, soft, no peritoneal signs. Absent: distended, tenderness - Extremities Exam Extremities exam: Present: warm, radial pulses palpable and symetrical. Absent : calf tenderness, cyanotic, pedal edema - Neurological Exam Neurological exam: Present: CN II-XII intact, oriented X3, no focal deficits. Absent: pronater drift, facial droop, speech deficit - Skin Skin exam: Present: dry, intact Internal Med - H&P Results - Labs CBC & Chem 7: 01/04/17 08:28 01/05/17 05:30
[2017-01-04] MEDS: Atropine Sulfate 1% 40 DROP/2 ML BOTTLE SL PRN (14:00)
--- NOTE | 2017-01-04 15:12 | Palliative - Consult Note ---
Date of Encounter: 01/04/17 Time of Encounter: 10:00 - Assessment and Plan (1) Dyspnea Current Visit: Yes Status: Acute Assessment and plan: Will continue giving patient breathing treatments, oxygen and patient is now on BiPAP we will monitor this. Qualifiers: Dyspnea type: other forms of dyspnea Qualified Code(s): R06.09 - Other forms of dyspnea (2) Goals of care, counseling/discussion Current Visit: Yes Status: Acute Assessment and plan: The patient and family are currently opting for comfort care. However they do wish to give antibiotics to try. The patient does well with this we will transfer him back to the DC. If he does not do well we will see about DC hospice. If DC hospice does not work out he will go with local hospice. (3) Bronchogenic cancer Current Visit: Yes Status: Acute Assessment and plan: This has been in remission for quite a while, although on the x-ray today there is a question of mass versus localized pneumonia. His family do not wish to have a biopsy done at this time, we will see if it is treatable with antibiotics if not the patient will probably opt for hospice. Qualifiers: Laterality: right Qualified Code(s): C34.91 - Malignant neoplasm of unspecified part of right bronchus or lung (4) Hyperkalemia Current Visit: Yes Status: Acute Assessment and plan: Patient wishes to have comfort care, but we will go ahead and give him some Kayexalate to see if we can bring this down. (5) Renal failure (ARF), acute on chronic Current Visit: Yes Status: Acute Assessment and plan: We will continue to watch and give fluids patient's blood pressure is much better now with fluids given previously continue to watch the renal failure. Patient is also very hyperkalemic which is secondary to the acute on chronic renal failure also continue to watch this. Patient may wish to not have this done much longer, in which case we will then stop. In the not for hospice at that time. (6) Respiratory failure Current Visit: Yes Status: Acute Assessment and plan: We will continue to use BiPAP as needed oxygen and breathing treatments. Patient is DNR CC so there will be no intubation. Qualifiers: Chronicity: acute on chronic Respiratory failure complication: hypoxia and hypercapnia Qualified Code(s): J96.21 - Acute and chronic respiratory failure with hypoxia; J96.22 - Acute and chronic respiratory failure with hypercapnia (7) Sepsis Current Visit: Yes Status: Acute Assessment and plan: Continue antibiotics for the next 24-48 hours and reevaluate at that point in time patient may wish to just do hospice care only. And stop all aggressive care. Qualifiers: Sepsis type: sepsis due to unspecified organism Qualified Code(s): A41.9 - Sepsis, unspecified organism Palliative-CN HPI - Data of Consult Patient: new to practice Requesting Physician: Harlan Fleming [facility] - Consult Narrative Palliative Care/Comfort Measures: Palliative care History of present illness: Mr. 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 Patient however has had right deal of problem over the last 6 weeks he fell on November 25 and head and was noted to have compression fractures in his back. Since then he has been in and out of the hospital back to [facility] for [facility] but never home. [facility] today was having more trouble breathing it was felt that he possibly aspirated and was sent to the emergency Department [facility] for further evaluation. In the emergency Department at [facility] the patient and family opted for comfort care measures only. After further discussion with the patient and the patient's family was decided we would try a limited trial of antibiotics and a limited amount of Kayexalate to deal with his hyperkalemia, sepsis and he is getting limited IV fluid for his renal failure. She does not having any pain at this time he is visibly short of breath and admits to this. Having some trouble with nausea but no vomiting. CC: Harlan Fleming sob, hypotension Past Med Surg Social Fam HX - Past Medical History Medical history: cancer, COPD, GERD, hyperlipidemia, hypertension, other - Past Surgical History Surgical History: non-contributory - Social History Smoking Status: Former smoker Alcohol use: unknown Drug use: unknown Medications and Allergies Aspirin [Lo-Dose Aspirin EC] 81 mg PO DAILY 01/04/17 [History] Atenolol [Tenormin] 37.5 mg PO DAILY 01/04/17 [History] Calcium Citrate 200 mg PO BID 01/04/17 [History] Cholecalciferol (D-3) [Vitamin D] 2,000 unit PO DAILY 01/04/17 [History] Docusate [Colace] 100 mg PO BID 01/04/17 [History] Guaifenesin [Adult Tussin Chest Congestion] 100 mg PO Q6H PRN 01/04/17 [History] Hydrochlorothiazide 12.5 mg PO DAILY 01/04/17 [History] Ipratropium/Albuterol Neb [Duoneb] 3 ml IH Q4HR 01/04/17 [History] Omeprazole [PriLOSEC] 40 mg PO BID 01/04/17 [History] Oxycodone HCl/Acetaminophen [Percocet 5-325 mg Tablet] 1 tab PO Q4H PRN [History] Potassium Chloride [Klor-Con Sprinkle] 10 meq PO DAILY 01/04/17 [History] Sennosides [Senna] 8.6 mg PO BID PRN 01/04/17 [History] Tamsulosin [Flomax] 0.4 mg PO DAILY 01/04/17 [History] Allergies Amoxicillin [From Augmentin] Allergy (Verified 01/04/17 08:10) Anaphylaxis clavulanic acid [From Augmentin] Allergy (Verified 01/04/17 08:10) Anaphylaxis ROS unobtainable: due to mental status (Patient is having a difficult time getting review of systems secondary to shortness of breath) Palliative Care-Exam - Constitutional Vitals: Temp Pulse Resp BP Pulse Ox 98.5 F 93 32 90/49 90 L 01/04/17 11:49 01/04/17 11:49 01/04/17 11:49 01/04/17 11:49 01/04/17 11:49 General appearance: Present: mild distress (Technique and shortness of breath) - Head Head Exam: Present: atraumatic, normal inspection - Eye Eye exam: Present: normal appearance - ENT ENT exam: Present: mucous membranes moist - Neck Neck exam: Present: normal inspection - Respiratory Respiratory exam: Present: decreased breath sounds (Lots of upper airway noise) , rhonchi - Cardiovascular Cardiovascular exam: Present: irregular rhythm (Somewhat irregular) - GI/Abdominal Exam GI/Abdominal exam: Present: normal bowel sounds, soft. Absent: tenderness - Extremities Exam Extremities exam: Present: normal inspection. Absent: pedal edema, tenderness - Neurological Exam Neurological exam: Present: alert - Psychiatric Psychiatric exam: Absent: agitated, anxious - Skin Skin exam: Present: dry, warm Internal Medicine - CN: Reslt - Labs CBC & Chem 7: 01/04/17 08:28 01/04/17 08:28 - ABG Interpretation ABG results: ABG ABG pH 7.43 pH Units (7.32-7.45) 01/04/17 08:20 ABG pCO2 54 mmHg (35-45) H 01/04/17 08:20 ABG pO2 82 mmHg (85-104) L 01/04/17 08:20 ABG O2 Saturation 96 % (95-98) 01/04/17 08:20 PT/INR, D-dimer PT 14.3 Seconds (9.4-12.1) H 01/04/17 08:28 Consult Discharge Plan - Plan [facility]errals: [facility] [Primary Care Provider] - Palliative Quality Palliative Quality: Screen for Code Status: Yes, Screen for Goals of Care: Yes, Screen for Pain: Yes, If Pain Regimen Started, Initiate Bowel Regimen: Yes, Screen for Nausea/Vomitting: Yes Code Status: 01/04/17 12:19 Resuscitation Status: Active [RES] Routine Comment: Resuscitation Status: DNR-Comfort Care
[2017-01-04] MEDS: Ipratropium/Albuterol Neb 3 ML IH SCH ×3 (16:07→23:29)
[2017-01-04] MEDS: *HR* Morphine 2 MG/ML SYRINGE IVP PRN ×5 (16:50→22:39)
[2017-01-04] MEDS: *HR* Heparin 5,000 UNIT/ML VIAL SQ SCH (17:33)
[2017-01-04] MEDS: Meropenem 500 MG in 0.9 % Sodium Chloride Mini Bag 100 ML IVPB SCH (17:46)
[2017-01-04] MEDS: *HR* LORazepam 2 MG/ML VIAL IVP PRN ×2 (18:54→22:40)
[2017-01-05] MEDS: *HR* Morphine 2 MG/ML SYRINGE IVP PRN ×6 (02:02→18:53)
[2017-01-05] MEDS: *HR* LORazepam 2 MG/ML VIAL IVP PRN ×5 (02:03→23:34)
[2017-01-05] MEDS: *HR* Heparin 5,000 UNIT/ML VIAL SQ SCH (03:34)
[2017-01-05] MEDS: Meropenem 500 MG in 0.9 % Sodium Chloride Mini Bag 100 ML IVPB SCH (03:35)
[2017-01-05] MEDS: Ipratropium/Albuterol Neb 3 ML IH SCH ×6 (04:17→23:17)
[2017-01-05 07:10] LABS: Albumin/Globulin Ratio 0.4 (1.1-2.2); Bilirubin,Total 0.2 mg/dL (0.2-1.2); Globulin 3.7 g/dL (2.4-3.5)
[2017-01-05 07:12] LABS: Albumin 1.5 g/dL (3.5-5.0); Calcium 7.9 mg/dL (8.6-10.8); Total Protein 5.2 g/dL (6.0-8.3)
[2017-01-05 07:15] LABS: Potassium 6.6 mEq/L (3.5-4.5)
[2017-01-05 07:30] LABS: Basophils % 0.1 %; Hematocrit 21.6 % (37.5-50.1); Immature Granulocytes % 0.7 % (0-4); Lymphocytes # 1.2 K/mcL (0.6-4.6); Lymphocytes % 8.5 %; Mean Corpuscular HGB Conc 30.6 g/dL (31.6-35.5); Mean Corpuscular Volume 98.2 fL (83.0-100.0); Monocytes # 0.7 K/mcL (0.0-1.3); Neutrophils # 11.9 K/mcL (1.6-8.9); Platelet Count 219 K/mcL (140-400); Red Cell Distribution Width 14.5 % (11.5-14.5); Segmented Neutrophils % 85.7 %
[2017-01-05 07:40] LABS: Hemoglobin 6.6 g/dL (12.9-16.9)
[2017-01-05 08:08] LABS: Basophilic Stippling 1+ (Not Present); Platelet Estimate Normal (Normal)
--- NOTE | 2017-01-05 10:21 | Internal Med Progress Note ---
<ChelaKyler lambert - Last Filed: 01/05/17 10:19> Date of Encounter: 01/05/17 Time of Encounter: 10:19 - Assessment and plan (1) Respiratory failure Current Visit: Yes Status: Acute Assessment and plan: Currently on BiPAP therapy. Likely related to pneumonia. History of lung cancer is also likely contributing. Patient is DNR CC, palliative care is following the patient closely. Patient will likely go hospice at some point in the near future. Qualifiers: Chronicity: acute on chronic Respiratory failure complication: hypoxia and hypercapnia Qualified Code(s): J96.21 - Acute and chronic respiratory failure with hypoxia; J96.22 - Acute and chronic respiratory failure with hypercapnia (2) Pneumonia Current Visit: Yes Status: Acute Assessment and plan: Likely contributing to the patient's respiratory failure. Family wishes to continue antibiotics at this time. BiPAP support as needed. DuoNeb and atropine for comfort. We will continually reassess goals of care with family. Qualifiers: Pneumonia type: due to unspecified organism Laterality: unspecified laterality Lung location: unspecified part of lung Qualified Code(s): J18.9 - Pneumonia, unspecified organism (3) Hyperkalemia Current Visit: Yes Status: Acute Assessment and plan: Likely related to the patient's acute renal failure. Improved slightly today. Plan was to treat with Kayexalate yesterday however the family is asking that we hold off on treating at this time. (4) Renal failure (ARF), acute on chronic Current Visit: Yes Status: Acute Assessment and plan: Gradually worsening. Likely causing hyperkalemia. Patient is DNR CC, no aggressive measures at this time. (5) Bronchogenic cancer Current Visit: Yes Status: Acute Assessment and plan: History of approximately 11 years ago. Possibly contributing to the patient's respiratory status. Qualifiers: Laterality: right Qualified Code(s): C34.91 - Malignant neoplasm of unspecified part of right bronchus or lung (6) Goals of care, counseling/discussion Current Visit: Yes Status: Acute Assessment and plan: Patient is DNR CC. Palliative care is following. Family has wished to institute comfort measures only with antibiotics. Patient will likely go hospice in the near future, the palliative care team is working on arranging this with either the [facility]. We will continue to follow. We appreciate the support of the palliative care team. - Subjective Interval history: Patient seen and examined at bedside. Patient is minimally responsive at this time. Patient does not appear to be in any acute distress. - Constitutional Vitals: Temp Pulse Resp BP Pulse Ox 97.5 F L 84 20 93/51 97 01/05/17 07:53 01/05/17 07:53 01/05/17 08:04 01/05/17 07:53 01/05/17 08:04 General appearance: Present: cachectic, A&O X 0, disheveled, no acute distress - Respiratory Respiratory exam: Present: rhonchi (Bilateral). Absent: respiratory distress - Cardiovascular Cardiovascular exam: Present: RRR. Absent: gallop, rubs, systolic murmur - GI/Abdominal GI/Abdominal exam: Present: normal bowel sounds, soft. Absent: distended, tenderness - Extremities Exam Extremities exam: Present: warm. Absent: pedal edema, tenderness - Neurological Exam Neurological exam: Present: altered (Not responsive at this time), no focal deficits Internal Medicine: Result - Labs CBC & Chem 7: 01/05/17 05:30 01/05/17 05:30 Labs: Short CBC 01/05/17 Range/Units 05:30 WBC 13.9 H (4.3-11.1) K/mcL Hgb 6.6 L D (12.9-16.9) g/dL Hct 21.6 L (37.5-50.1) % Plt Count 219 D (140-400) K/mcL Neutrophils # 11.9 H (1.6-8.9) K/mcL BMP 01/05/17 05:30 Sodium 145 Potassium 6.6 H* Chloride 115 H Carbon Dioxide 21 BUN 93 H Creatinine 3.43 H Glucose 120 H Calcium 7.9 L D Liver Function 01/05/17 Range/Units 05:30 Total Bilirubin 0.2 (0.2-1.2) mg/dL AST 12 (5-34) Units/L ALT 8 (0-55) Units/L Alkaline Phosphatase 55 (38-126) Units/L Albumin 1.5 L D (3.5-5.0) g/dL - ABG Interpretation ABG results: ABG ABG pH 7.43 pH Units (7.32-7.45) 01/04/17 08:20 ABG pCO2 54 mmHg (35-45) H 01/04/17 08:20 ABG pO2 82 mmHg (85-104) L 01/04/17 08:20 ABG O2 Saturation 96 % (95-98) 01/04/17 08:20 PT/INR, D-dimer PT 14.3 Seconds (9.4-12.1) H 01/04/17 08:28 Consult Discharge Plan - Plan Referrals: [facility] [Primary Care Provider] - <Harlan Fleming H - Last Filed: 01/05/17 11:01> Date of Encounter: 01/05/17 - Constitutional Vitals: Temp Pulse Resp BP Pulse Ox 97.5 F L 84 20 93/51 97 01/05/17 07:53 01/05/17 07:53 01/05/17 08:04 01/05/17 07:53 01/05/17 08:04 Internal Medicine: Result - Labs CBC & Chem 7: 01/05/17 05:30 01/05/17 05:30 Labs: Short CBC 01/05/17 Range/Units 05:30 WBC 13.9 H (4.3-11.1) K/mcL Hgb 6.6 L D (12.9-16.9) g/dL Hct 21.6 L (37.5-50.1) % Plt Count 219 D (140-400) K/mcL Neutrophils # 11.9 H (1.6-8.9) K/mcL BMP 01/05/17 05:30 Sodium 145 Potassium 6.6 H* Chloride 115 H Carbon Dioxide 21 BUN 93 H Creatinine 3.43 H Glucose 120 H Calcium 7.9 L D Liver Function 01/05/17 Range/Units 05:30 Total Bilirubin 0.2 (0.2-1.2) mg/dL AST 12 (5-34) Units/L ALT 8 (0-55) Units/L Alkaline Phosphatase 55 (38-126) Units/L Albumin 1.5 L D (3.5-5.0) g/dL - ABG Interpretation ABG results: ABG ABG pH 7.43 pH Units (7.32-7.45) 01/04/17 08:20 ABG pCO2 54 mmHg (35-45) H 01/04/17 08:20 ABG pO2 82 mmHg (85-104) L 01/04/17 08:20 ABG O2 Saturation 96 % (95-98) 01/04/17 08:20 PT/INR, D-dimer PT 14.3 Seconds (9.4-12.1) H 01/04/17 08:28 - Attending Attestation Acute hypoxic hypercapnic respiratory failure secondary to sepsis from community -acquired pneumonia and also urinary tract infection growing gram-negative rods Continue Merrem and Levaquin. Consider hospice if not improving. Continue BiPAP I examined this patient and my medical decision-making was reviewed with the FAST FOOD ATTENDANT/PA/Advanced Practice Nurse/Resident Physician. I agree with the documented findings, disposition and treatment plan as described except to the extent set forth below.
--- NOTE | 2017-01-05 10:34 | Electrocardiograph Report ---
[place] [id number] Test Date: 2017-01-04 Pat Name: Alexandre Greer Department: 104 Room: 2A Gender: M Medical Records Coder: : [id number] Requested By: Sly Hinson Order Number: [id number] Reading MD: Delonte Friedman MD Measurements Intervals [place] Rate: 125 P: 68 TX: 146 QRS: -29 QRSD: 85 T: 64 QT: 280 QTc: 354 Interpretive Statements SINUS TACHYCARDIA BORDERLINE LEFT AXIS DEVIATION LOW QRS VOLTAGE IN PRECORDIAL LEADS Electronically Signed On 01-05-2017 10:32:42 EST by Delonte Friedman MD
--- NOTE | 2017-01-05 11:41 | Palliative Progress Note ---
Date of Encounter: 01/05/17 Time of Encounter: 09:30 - Assessment and plan (1) Dyspnea Current Visit: Yes Status: Acute Assessment and plan: Able at this time on medications and BiPAP. Qualifiers: Dyspnea type: other forms of dyspnea Qualified Code(s): R06.09 - Other forms of dyspnea (2) Goals of care, counseling/discussion Current Visit: Yes Status: Acute Assessment and plan: DNR comfort care. After discussion with patient's family this morning is been decided to stop all care other than pure comfort only. They are considering withdrawal of BiPAP. Since there will be no further aggressive care we are initiating [facility]. (3) Bronchogenic cancer Current Visit: Yes Status: Acute Assessment and plan: Unknown at this is actually current or not. There will be no further aggressive care or workup done. Qualifiers: Laterality: right Qualified Code(s): C34.91 - Malignant neoplasm of unspecified part of right bronchus or lung (4) Hyperkalemia Current Visit: Yes Status: Acute Assessment and plan: Family has requested not to have this treated as the patient had said he did not wish to have an NG tube placed and is unable to swallow Kayexalate at this time. The family also agrees that he would not want to have a retention enema. (5) Renal failure (ARF), acute on chronic Current Visit: Yes Status: Acute Assessment and plan: Labs are actually trending downward however the family is talking about withdrawal of all aggressive care. (6) Respiratory failure Current Visit: Yes Status: Acute Assessment and plan: She is stable currently on BiPAP. Continue current medications continue BiPAP until family decides on time to withdraw BiPAP. Qualifiers: Chronicity: acute on chronic Respiratory failure complication: hypoxia and hypercapnia Qualified Code(s): J96.21 - Acute and chronic respiratory failure with hypoxia; J96.22 - Acute and chronic respiratory failure with hypercapnia (7) Sepsis Current Visit: Yes Status: Acute Assessment and plan: No further aggressive care is anticipated and all antibiotics have been discontinued per family request. Doing comfort only at this time. Qualifiers: Sepsis type: sepsis due to unspecified organism Qualified Code(s): A41.9 - Sepsis, unspecified organism - Time Spent With Patient Total time spent is greater than 50% in coordination of care (as documented) at patient's floor/unit and/or counseling patient: - Subjective Interval history: The patient is stable and comfortable this morning. Family has requested withdrawal of all antibiotics and non-comfort care medications. Anticipate DC of BiPAP later today or tomorrow. Starting discharge planning to [place] for hospice care. - Constitutional Vitals: Abnormal lab results WBC 13.9 K/mcL (4.3-11.1) H 01/05/17 05:30 RBC 2.20 M/mcL (4.19-5.50) L 01/05/17 05:30 Hgb 6.6 g/dL (12.9-16.9) L D 01/05/17 05:30 Hct 21.6 % (37.5-50.1) L 01/05/17 05:30 MCHC 30.6 g/dL (31.6-35.5) L 01/05/17 05:30 Band Neutrophils % 16.0 % (0-4) H 01/04/17 08:28 Myelocytes % 2.0 % (0) H 01/04/17 08:28 Neutrophils # 11.9 K/mcL (1.6-8.9) H 01/05/17 05:30 Polychromasia 1+ (Not Present) A 01/04/17 08:28 Poikilocytosis 1+ (Not Present) A 01/04/17 08:28 Basophilic Stippling 1+ (Not Present) A 01/05/17 05:30 Anisocytosis 1+ (Not Present) A 01/04/17 08:28 PT 14.3 Seconds (9.4-12.1) H 01/04/17 08:28 ABG pCO2 54 mmHg (35-45) H 01/04/17 08:20 ABG pO2 82 mmHg (85-104) L 01/04/17 08:20 ABG HCO3 35.8 mEQ/L (21-27) H 01/04/17 08:20 ABG Total CO2 37.5 mEq/L (20-26) H 01/04/17 08:20 ABG Base Excess 10.1 mEq/L (-2.0 to 3.0) H 01/04/17 08:20 Potassium 6.6 mEq/L (3.5-4.5) H* 01/05/17 05:30 Chloride 115 mEq/L (98-109) H 01/05/17 05:30 BUN 93 mg/dL (8-26) H 01/05/17 05:30 Creatinine 3.43 mg/dL (0.72-1.25) H 01/05/17 05:30 Est GFR ( Amer) 21 (> 60) L 01/05/17 05:30 Est GFR (Non-Af Amer) 17 (> 60) L 01/05/17 05:30 BUN/Creatinine Ratio 27 (6-26) H 01/05/17 05:30 Glucose 120 mg/dL (70-99) H 01/05/17 05:30 Calculated Osmolality 330 (280-300) H 01/05/17 05:30 Calcium 7.9 mg/dL (8.6-10.8) L D 01/05/17 05:30 Phosphorus 5.4 mg/dL (2.3-4.7) H 01/04/17 08:28 Troponin I 0.71 ng/mL (0-0.03) H* 01/04/17 08:28 B-Natriuretic Peptide 393 pg/mL (0-100) H 01/04/17 08:28 Serum Total Protein 5.2 g/dL (6.0-8.3) L D 01/05/17 05:30 Albumin 1.5 g/dL (3.5-5.0) L D 01/05/17 05:30 Globulin 3.7 g/dL (2.4-3.5) H 01/05/17 05:30 Albumin/Globulin Ratio 0.4 (1.1-2.2) L 01/05/17 05:30 Urine Clarity Cloudy (Clear) A 01/04/17 08:18 Ur Specific [place] > 1.030 (1.010-1.025) H 01/04/17 08:18 Urine Protein 30 mg/dL (Neg-Trace) H 01/04/17 08:18 Urine Ketones Trace mg/dL (Negative) H 01/04/17 08:18 Urine Blood Large (Negative) H 01/04/17 08:18 Urine Nitrite Positive (Negative) A 01/04/17 08:18 Ur Leukocyte Esterase Moderate (Negative) H 01/04/17 08:18 Urine Microscopic RBC 30-50 per hpf (0-3) H 01/04/17 08:18 Urine Microscopic WBC TNTC per hpf (0-3) H 01/04/17 08:18 Ur Squamous Epith Cells Many per lpf (None-Few) H 01/04/17 08:18 Urine Bacteria Moderate per hpf (None-Few) H 01/04/17 08:18 Ur Culture Indicated? YES (NO) A 01/04/17 08:18 General appearance: Present: no acute distress - Head Head exam: Present: atraumatic, normal inspection - Eye Eye exam: Present: normal appearance - ENT ENT exam: Present: mucous membranes moist (On continuous BiPAP.) - Neck Neck exam: Present: normal inspection - Respiratory Respiratory exam: Present: decreased breath sounds - Cardiovascular Cardiovascular exam: Present: RRR - GI/Abdominal GI/Abdominal exam: Present: normal bowel sounds, soft. Absent: tenderness - Extremities Exam Extremities exam: Present: normal inspection. Absent: pedal edema, tenderness - Neurological Exam Neurological exam: Present: altered - Psychiatric Psychiatric exam: Absent: agitated, anxious - Skin Skin exam: Present: dry, warm Palliative Quality Palliative Quality: Screen for Code Status: Yes, Screen for Goals of Care: Yes, Screen for Pain: Yes, If Pain Regimen Started, Initiate Bowel Regimen: Yes, Screen for Nausea/Vomitting: Yes Code Status: 01/04/17 12:19 Resuscitation Status: Active [RES] Routine Comment: Resuscitation Status: DNR-Comfort Care - Labs CBC & Chem 7: 01/05/17 05:30 01/05/17 05:30 Labs: Laboratory Results - last 24 hr 01/05/17 01/05/17 05:30 05:30 WBC 13.9 H RBC 2.20 L Hgb 6.6 L D Hct 21.6 L MCV 98.2 MCH 30.0 MCHC 30.6 L RDW 14.5 Plt Count 219 D MPV 10.0 Immature Gran % 0.7 Seg Neutrophils % 85.7 Lymphocytes % 8.5 Monocytes % 5.0 Eosinophils % 0.0 Basophils % 0.1 Neutrophils # 11.9 H Lymphocytes # 1.2 Monocytes # 0.7 Eosinophils # 0.0 Basophils # 0.0 Platelet Estimate Normal Basophilic Stippling 1+ A Sodium 145 Potassium 6.6 H* Chloride 115 H Carbon Dioxide 21 BUN 93 H Creatinine 3.43 H Est GFR ( Amer) 21 L Est GFR (Non-Af Amer) 17 L BUN/Creatinine Ratio 27 H Glucose 120 H Calculated Osmolality 330 H Calcium 7.9 L D Total Bilirubin 0.2 AST 12 ALT 8 Alkaline Phosphatase 55 Serum Total Protein 5.2 L D Albumin 1.5 L D Globulin 3.7 H Albumin/Globulin Ratio 0.4 L - ABG Interpretation ABG results: ABG ABG pH 7.43 pH Units (7.32-7.45) 01/04/17 08:20 ABG pCO2 54 mmHg (35-45) H 01/04/17 08:20 ABG pO2 82 mmHg (85-104) L 01/04/17 08:20 ABG O2 Saturation 96 % (95-98) 01/04/17 08:20 PT/INR, D-dimer PT 14.3 Seconds (9.4-12.1) H 01/04/17 08:28 Consult Discharge Plan - Plan [facility]errals: [facility] [Primary Care Provider] -
[2017-01-05] MEDS ORDERED: Morphine Oral CONC 5 MG/0.25 ML ORAL.SYG PO PRN (14:02)
[2017-01-05] MEDS ORDERED: *HR* LORazepam Oral Conc 2 MG/ML SL PRN (14:09)
--- NOTE | 2017-01-05 14:12 | Event Note ---
Date of Encounter: 01/05/17 Time of Encounter: 14:12 Patient awake and indicating he wishes to have the BiPAP mask off. Family had plan to terminate the BiPAP mask anyway. Given additional medication we will leave the BiPAP mask off we will place an power light if possible for IV medications. Ultimate plan is for discharge the [place] tomorrow with hospice.
[2017-01-05] MEDS: *HR* LORazepam Oral Conc 2 MG/ML SL PRN ×2 (14:29→19:04)
[2017-01-05] MEDS: Atropine Sulfate 1% 40 DROP/2 ML BOTTLE SL PRN (14:41)
[2017-01-05] MEDS ORDERED: *HR* Morphine 30 MG/ 30 ML PCA IVC SCH (14:45)
[2017-01-05] MEDS: *HR* Morphine 30 MG/ 30 ML PCA IVC SCH (17:06)
[2017-01-06] MEDS: *HR* LORazepam 2 MG/ML VIAL IVP PRN ×10 (03:01→23:36)
[2017-01-06] MEDS: Ipratropium/Albuterol Neb 3 ML IH SCH ×5 (03:59→20:36)
[2017-01-06] MEDS: *HR* Morphine 30 MG/ 30 ML PCA IVC SCH ×3 (07:07→18:03)
[2017-01-06] MEDS ORDERED: Levofloxacin 500 MG/100 ML 500 MG/100 ML BAG IVPB SCH (09:00)
[2017-01-06] MEDS: *HR* Morphine 2 MG/ML SYRINGE IVP PRN ×13 (10:59→23:36)
--- NOTE | 2017-01-06 13:40 | Palliative Progress Note ---
Date of Encounter: 01/06/17 Time of Encounter: 09:30 - Assessment and plan (1) Dyspnea Current Visit: Yes Status: Acute Assessment and plan: Able at this time on a morphine drip and BiPAP. The BiPAP will be withdrawn later today. Qualifiers: Dyspnea type: other forms of dyspnea Qualified Code(s): R06.09 - Other forms of dyspnea (2) Goals of care, counseling/discussion Current Visit: Yes Status: Acute Assessment and plan: DNR comfort care. After discussion with patient's family this morning is been decided to stop all care other than pure comfort only. They are considering withdrawal of BiPAP. Since there will be no further aggressive care we are initiating discharged to hosp[facility] with [facility]. BiPAP will be withdrawn later today. We will continue the morphine drip and watch the patient over the course of the weekend. 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 There will be no further aggressive care or workup done. Qualifiers: Laterality: right Qualified Code(s): C34.91 - Malignant neoplasm of unspecified part of right bronchus or lung (4) Hyperkalemia Current Visit: Yes Status: Acute Assessment and plan: Family has requested not to have this treated as the patient had said he did not wish to have an NG tube placed and is unable to swallow Kayexalate at this time. The family also agrees that he would not want to have a retention enema. This is no longer a problem as the family has directed not to deal with it any further. We will drop her off the list. (5) Renal failure (ARF), acute on chronic Current Visit: Yes Status: Acute Assessment and plan: Mirlea has opted for no further aggressive care. Comfort care only. Consider for hospice on Monday if the patient survives coming off the BiPAP. (6) Respiratory failure Current Visit: Yes Status: Acute Qualifiers: Chronicity: acute on chronic Respiratory failure complication: hypoxia and hypercapnia Qualified Code(s): J96.21 - Acute and chronic respiratory failure with hypoxia; J96.22 - Acute and chronic respiratory failure with hypercapnia (7) Sepsis Current Visit: Yes Status: Acute Qualifiers: Sepsis type: sepsis due to unspecified organism Qualified Code(s): A41.9 - Sepsis, unspecified organism - Time Spent With Patient Total time spent is greater than 50% in coordination of care (as documented) at patient's floor/unit and/or counseling patient: - Subjective Interval history: The patient is stable and comfortable this morning. he is on continuous morphine drip. He is tolerating BiPAP well. - Constitutional Vitals: Abnormal lab results WBC 13.9 K/mcL (4.3-11.1) H 01/05/17 05:30 RBC 2.20 M/mcL (4.19-5.50) L 01/05/17 05:30 Hgb 6.6 g/dL (12.9-16.9) L D 01/05/17 05:30 Hct 21.6 % (37.5-50.1) L 01/05/17 05:30 MCHC 30.6 g/dL (31.6-35.5) L 01/05/17 05:30 Band Neutrophils % 16.0 % (0-4) H 01/04/17 08:28 Myelocytes % 2.0 % (0) H 01/04/17 08:28 Neutrophils # 11.9 K/mcL (1.6-8.9) H 01/05/17 05:30 Polychromasia 1+ (Not Present) A 01/04/17 08:28 Poikilocytosis 1+ (Not Present) A 01/04/17 08:28 Basophilic Stippling 1+ (Not Present) A 01/05/17 05:30 Anisocytosis 1+ (Not Present) A 01/04/17 08:28 PT 14.3 Seconds (9.4-12.1) H 01/04/17 08:28 ABG pCO2 54 mmHg (35-45) H 01/04/17 08:20 ABG pO2 82 mmHg (85-104) L 01/04/17 08:20 ABG HCO3 35.8 mEQ/L (21-27) H 01/04/17 08:20 ABG Total CO2 37.5 mEq/L (20-26) H 01/04/17 08:20 ABG Base Excess 10.1 mEq/L (-2.0 to 3.0) H 01/04/17 08:20 Potassium 6.6 mEq/L (3.5-4.5) H* 01/05/17 05:30 Chloride 115 mEq/L (98-109) H 01/05/17 05:30 BUN 93 mg/dL (8-26) H 01/05/17 05:30 Creatinine 3.43 mg/dL (0.72-1.25) H 01/05/17 05:30 Est GFR ( Amer) 21 (> 60) L 01/05/17 05:30 Est GFR (Non-Af Amer) 17 (> 60) L 01/05/17 05:30 BUN/Creatinine Ratio 27 (6-26) H 01/05/17 05:30 Glucose 120 mg/dL (70-99) H 01/05/17 05:30 Calculated Osmolality 330 (280-300) H 01/05/17 05:30 Calcium 7.9 mg/dL (8.6-10.8) L D 01/05/17 05:30 Phosphorus 5.4 mg/dL (2.3-4.7) H 01/04/17 08:28 Troponin I 0.71 ng/mL (0-0.03) H* 01/04/17 08:28 B-Natriuretic Peptide 393 pg/mL (0-100) H 01/04/17 08:28 Serum Total Protein 5.2 g/dL (6.0-8.3) L D 01/05/17 05:30 Albumin 1.5 g/dL (3.5-5.0) L D 01/05/17 05:30 Globulin 3.7 g/dL (2.4-3.5) H 01/05/17 05:30 Albumin/Globulin Ratio 0.4 (1.1-2.2) L 01/05/17 05:30 Urine Clarity Cloudy (Clear) A 01/04/17 08:18 Ur Specific [place] > 1.030 (1.010-1.025) H 01/04/17 08:18 Urine Protein 30 mg/dL (Neg-Trace) H 01/04/17 08:18 Urine Ketones Trace mg/dL (Negative) H 01/04/17 08:18 Urine Blood Large (Negative) H 01/04/17 08:18 Urine Nitrite Positive (Negative) A 01/04/17 08:18 Ur Leukocyte Esterase Moderate (Negative) H 01/04/17 08:18 Urine Microscopic RBC 30-50 per hpf (0-3) H 01/04/17 08:18 Urine Microscopic WBC TNTC per hpf (0-3) H 01/04/17 08:18 Ur Squamous Epith Cells Many per lpf (None-Few) H 01/04/17 08:18 Urine Bacteria Moderate per hpf (None-Few) H 01/04/17 08:18 Ur Culture Indicated? YES (NO) A 01/04/17 08:18 General appearance: Present: no acute distress - Head Head exam: Absent: atraumatic (In changes around the nose with the BiPAP mask is noted there is hyperemic area without actual breakdown), normal inspection - Eye Eye exam: Present: normal appearance - ENT ENT exam: Present: mucous membranes moist (Vital to examine on BiPAP) - Respiratory Respiratory exam: Present: decreased breath sounds - Cardiovascular Cardiovascular exam: Present: RRR - GI/Abdominal GI/Abdominal exam: Present: hypoactive bowel sounds, soft. Absent: tenderness - Extremities Exam Extremities exam: Present: normal inspection. Absent: pedal edema, tenderness - Neurological Exam Neurological exam: Present: altered (On morphine drip) - Psychiatric Psychiatric exam: Absent: agitated, anxious - Skin Skin exam: Present: dry, warm Palliative Quality Palliative Quality: Screen for Code Status: Yes, Screen for Goals of Care: Yes, Screen for Pain: Yes, If Pain Regimen Started, Initiate Bowel Regimen: Yes, Screen for Nausea/Vomitting: Yes Code Status: 01/04/17 12:19 Resuscitation Status: Active [RES] Routine Comment: Resuscitation Status: DNR-Comfort Care - Labs CBC & Chem 7: 01/05/17 05:30 01/05/17 05:30 - ABG Interpretation ABG results: ABG ABG pH 7.43 pH Units (7.32-7.45) 01/04/17 08:20 ABG pCO2 54 mmHg (35-45) H 01/04/17 08:20 ABG pO2 82 mmHg (85-104) L 01/04/17 08:20 ABG O2 Saturation 96 % (95-98) 01/04/17 08:20 PT/INR, D-dimer PT 14.3 Seconds (9.4-12.1) H 01/04/17 08:28 Consult Discharge Plan - Plan Referrals: [facility] [Primary Care Provider] -
[2017-01-06] MEDS ORDERED: *HR* Morphine 2 MG/ML SYRINGE IVP ONE (13:44)
[2017-01-06] MEDS ORDERED: *HR* LORazepam 2 MG/ML VIAL IVP ONE (13:45)
[2017-01-06] MEDS ORDERED: 0.9 % Sodium Chloride 1,000 ML ONE (14:52)
--- NOTE | 2017-01-06 15:18 | Internal Med Progress Note ---
<Ever Comer - Last Filed: 01/06/17 15:16> Date of Encounter: 01/06/17 Time of Encounter: 15:17 - Assessment and plan (1) Respiratory failure Current Visit: Yes Status: Acute Assessment and plan: Currently on BiPAP therapy. Likely related to pneumonia. History of lung cancer is also likely contributing. Patient is DNR CC, palliative care is following the patient closely. WIll go off BIPAP today. Qualifiers: Chronicity: acute on chronic Respiratory failure complication: hypoxia and hypercapnia Qualified Code(s): J96.21 - Acute and chronic respiratory failure with hypoxia; J96.22 - Acute and chronic respiratory failure with hypercapnia (2) Bronchogenic cancer Current Visit: Yes Status: Acute Assessment and plan: History of approximately 11 years ago. Possibly contributing to the patient's respiratory status. Qualifiers: Laterality: right Qualified Code(s): C34.91 - Malignant neoplasm of unspecified part of right bronchus or lung (3) Goals of care, counseling/discussion Current Visit: Yes Status: Acute Assessment and plan: Patient is DNR CC. Palliative care is following. Family has wished to institute comfort measures only with antibiotics. BIPAP will be discontinued later today Plan to d/c to [place] hospice. (4) Hyperkalemia Current Visit: Yes Status: Acute Assessment and plan: Likely related to the patient's acute renal failure. Improved slightly today. Plan was to treat with Kayexalate yesterday however the family is asking that we hold off on treating at this time. (5) Pneumonia Current Visit: Yes Status: Acute Assessment and plan: Likely contributing to the patient's respiratory failure. Family wishes to continue antibiotics at this time. BiPAP d/c later today. DuoNeb and atropine for comfort. We will continually reassess goals of care with family. Qualifiers: Pneumonia type: due to unspecified organism Laterality: unspecified laterality Lung location: unspecified part of lung Qualified Code(s): J18.9 - Pneumonia, unspecified organism (6) Renal failure (ARF), acute on chronic Current Visit: Yes Status: Acute Assessment and plan: Gradually worsening. Likely causing hyperkalemia. Patient is DNR CC, no aggressive measures at this time. - Subjective Interval history: Patient is comfortable, resting in bed with bipap. Family is around. Patient will be taken off of BIPAP today. Plan to d/c to [place] hospice. - Constitutional Vitals: Temp Pulse Resp BP Pulse Ox 99.7 F H 85 17 92/53 91 L 01/06/17 10:50 01/06/17 10:50 01/06/17 11:37 01/06/17 10:50 01/06/17 11:37 General appearance: Present: cachectic, A&O X 0, disheveled, no acute distress - Respiratory Respiratory exam: Present: decreased breath sounds, rhonchi (upper b/l ). Absent: rales, wheezes - Cardiovascular Cardiovascular exam: Present: irregular rhythm - GI/Abdominal GI/Abdominal exam: Present: normal bowel sounds, soft, no peritoneal signs. Absent: distended, tenderness - Extremities Exam Extremities exam: Present: warm, radial pulses palpable and symetrical. Absent : calf tenderness, cyanotic, pedal edema Internal Medicine: Result - Labs CBC & Chem 7: 01/05/17 05:30 01/05/17 05:30 - ABG Interpretation ABG results: ABG ABG pH 7.43 pH Units (7.32-7.45) 01/04/17 08:20 ABG pCO2 54 mmHg (35-45) H 01/04/17 08:20 ABG pO2 82 mmHg (85-104) L 01/04/17 08:20 ABG O2 Saturation 96 % (95-98) 01/04/17 08:20 PT/INR, D-dimer PT 14.3 Seconds (9.4-12.1) H 01/04/17 08:28 Consult Discharge Plan - Plan Referrals: [facility] [Primary Care Provider] - (hospice patient ) <Harlan Fleming H - Last Filed: 01/06/17 16:24> Date of Encounter: 01/06/17 - Constitutional Vitals: Temp Pulse Resp BP Pulse Ox 98.0 F 89 16 94/54 94 L 01/06/17 16:18 01/06/17 16:18 01/06/17 16:18 01/06/17 16:18 01/06/17 16:18 Internal Medicine: Result - Labs CBC & Chem 7: 01/05/17 05:30 01/05/17 05:30 - ABG Interpretation ABG results: ABG ABG pH 7.43 pH Units (7.32-7.45) 01/04/17 08:20 ABG pCO2 54 mmHg (35-45) H 01/04/17 08:20 ABG pO2 82 mmHg (85-104) L 01/04/17 08:20 ABG O2 Saturation 96 % (95-98) 01/04/17 08:20 PT/INR, D-dimer PT 14.3 Seconds (9.4-12.1) H 01/04/17 08:28 - Attending Attestation Acute hypoxic hypercapnic respiratory failure secondary to sepsis from community -acquired pneumonia and also urinary tract infection growing pseudomonas resistant to ciprofloxacin Full comfort measures I examined this patient and my medical decision-making was reviewed with the SWITCHBOARD OPERATOR HELPER/PA/Advanced Practice Nurse/Resident Physician. I agree with the documented findings, disposition and treatment plan as described except to the extent set forth below.
[2017-01-06 16:19] VITALS: BP 94/54
[2017-01-06] MEDS ORDERED: Atropine Sulfate 1% 40 DROP/2 ML BOTTLE SL PRN (18:27)
[2017-01-06] MEDS: Atropine Sulfate 1% 40 DROP/2 ML BOTTLE SL PRN ×2 (20:34→22:08)
[2017-01-07] MEDS: Ipratropium/Albuterol Neb 3 ML IH SCH ×4 (00:06→12:02)
[2017-01-07] MEDS: *HR* Morphine 30 MG/ 30 ML PCA IVC SCH ×2 (00:16→05:27)
[2017-01-07] MEDS: *HR* LORazepam 2 MG/ML VIAL IVP PRN ×6 (00:18→06:27)
[2017-01-07] MEDS: *HR* Morphine 2 MG/ML SYRINGE IVP PRN ×12 (01:04→06:27)
[2017-01-07] MEDS ORDERED: WATER IVC SCH ×2 (07:45→08:00)
[2017-01-07] MEDS ORDERED: D5 IVC SCH ×2 (07:45→08:00)
[2017-01-07] MEDS ORDERED: MORPHINE IVC SCH ×2 (07:45→08:00)
--- NOTE | 2017-01-07 08:50 | Internal Med Progress Note ---
Date of Encounter: 01/07/17 Time of Encounter: 08:47 - Assessment and plan (1) Respiratory failure Current Visit: Yes Status: Acute Assessment and plan: Acute hypoxic hypercapnic respiratory failure secondary to sepsis from community -acquired pneumonia and also urinary tract infection growing pseudomonas resistant to ciprofloxacin Full comfort measures, morphine drip Off BIPAP. Patient is DNR CC, palliative care is following the patient closely. Qualifiers: Chronicity: acute on chronic Respiratory failure complication: hypoxia and hypercapnia Qualified Code(s): J96.21 - Acute and chronic respiratory failure with hypoxia; J96.22 - Acute and chronic respiratory failure with hypercapnia (2) Bronchogenic cancer Current Visit: Yes Status: Acute Assessment and plan: History of approximately 11 years ago. Possibly contributing to the patient's respiratory status. Qualifiers: Laterality: right Qualified Code(s): C34.91 - Malignant neoplasm of unspecified part of right bronchus or lung (3) Dyspnea Current Visit: Yes Status: Acute Qualifiers: Dyspnea type: other forms of dyspnea Qualified Code(s): R06.09 - Other forms of dyspnea (4) Hyperkalemia Current Visit: Yes Status: Acute Assessment and plan: Likely related to the patient's acute renal failure. Family rejected the use of Kayexalate (5) Pneumonia Current Visit: Yes Status: Acute Assessment and plan: Likely contributing to the patient's respiratory failure. Antibiotics were discontinued. BiPAP atropine for comfort. Qualifiers: Pneumonia type: due to unspecified organism Laterality: unspecified laterality Lung location: unspecified part of lung Qualified Code(s): J18.9 - Pneumonia, unspecified organism (6) Renal failure (ARF), acute on chronic Current Visit: Yes Status: Acute Assessment and plan: Gradually worsening. Likely causing hyperkalemia. Patient is DNR CC, no aggressive measures at this time. (7) Sepsis Current Visit: Yes Status: Acute Qualifiers: Sepsis type: sepsis due to unspecified organism Qualified Code(s): A41.9 - Sepsis, unspecified organism - Subjective Interval history: resting peacefully, no distress. Unable to complete ROS - Constitutional Vitals: Temp Pulse Resp BP Pulse Ox 98.0 F 89 15 94/54 91 L 01/06/17 16:18 01/06/17 16:18 01/06/17 16:27 01/06/17 16:18 01/06/17 16:27 General appearance: Present: cachectic, A&O X 0, no acute distress - Head Head exam: Present: atraumatic, normocephalic - Eye Eye exam: Present: PERRL, conjuntiva pink, sclera anicteric Pupils: Present: PERRL - Neck Neck exam general surgery: Present: supple, trachea midline. Absent: lymphadenopathy - Respiratory Respiratory exam: Present: decreased breath sounds, CTAB, rales (diffuse crackles). Absent: accessory muscle use, rhonchi, wheezes - Cardiovascular Cardiovascular exam: Present: RRR, +S1, +S2. Absent: diastolic murmur, gallop, rubs, systolic murmur - GI/Abdominal GI/Abdominal exam: Present: normal bowel sounds, soft, no peritoneal signs. Absent: distended, tenderness - Extremities Exam Extremities exam: Present: warm, radial pulses palpable and symetrical. Absent : calf tenderness, cyanotic, pedal edema - Neurological Exam Neurological exam: Present: CN II-XII intact, no focal deficits. Absent: oriented X3, pronater drift, facial droop, speech deficit - Skin Skin exam: Present: dry, intact Internal Medicine: Result - Labs CBC & Chem 7: 01/05/17 05:30 01/05/17 05:30 - ABG Interpretation ABG results: ABG ABG pH 7.43 pH Units (7.32-7.45) 01/04/17 08:20 ABG pCO2 54 mmHg (35-45) H 01/04/17 08:20 ABG pO2 82 mmHg (85-104) L 01/04/17 08:20 ABG O2 Saturation 96 % (95-98) 01/04/17 08:20 PT/INR, D-dimer PT 14.3 Seconds (9.4-12.1) H 01/04/17 08:28 Consult Discharge Plan - Plan [facility]errals: [facility] [Primary Care Provider] - (hospice patient )
--- NOTE | 2017-01-07 09:39 | Death Note ---
Discharge Sum: Summary - Date and Time Date of admission: 01/04/17 10:46 Date of : 01/07/17 Time of : 09:10 - Summary Details: The patient came into the hospital for pneumonia as well as a urinary tract infection and sepsis. Family and patient opted early on for comfort care only, after the patient was given a trial of antibiotics. Although the white blood cell count did go down the patient overall also was failing. In the family decided on comfort care only. The patient was maintained on the hospitalist service, however be able to keep the [facility] benefit available to him if he needed it. Palliative care service was really involved in this patient's care. He passed comfortably with family at bedside. Patient was a former smoker. As of is respiratory failure secondary to pneumonia. Comorbidities are urinary tract infection and sepsis history of lung cancer over 10 years ago. COPD hyperlipidemia and hypertension. - Additional Data Confirmation of as documented by pronouncing clinician: no pulse, no respirations, no heart sounds Family: at bedside Attending/PCP notified?: Yes Attending physician: Harlan Fleming Was code activated?: No Autopsy requested?: No forensic document examiner notified?: No Organ bank notified?: Yes Advance directives: Yes Hospice patient?: No Discharge Sum: Diag - PCOD Probable Cause of : Respiratory arrest Discharge Sum: Prov - Provider [facility] care physician: [facility] Consults: 01/04/17 13:49 Consult to Palliative Care [CONS] Routine Comment: Consulting Provider: Palliative Care Desire
== END 2017-01-07 09:10 | disposition expired | DRG 871 ==
LOC: EMEROO 08:05 → 2ANU 10:46
PROVIDERS: ADMIT Internal Medicine; ATTEND Internal Medicine